=== PATIENT | male | born 1950 | race Asian ===

== ENCOUNTER 2017-03-11 01:45 | Inpatient (IN) | payer MEDICARE ==
[~2017-03-11] VITALS: Ht 154.9 cm; Wt 60.8 kg
--- NOTE | ~2017-03-11 | HP ---
PATIENT'S NAME: ERICA MARTIN [facility] AGE: 66 Y [address] ROOM: [id number] [place], [place] [address] LOCATION: [facility] ADMIT DATE: 03/11/2017 History & Physical DISCHARGE DATE: FAMILY PHYSICIAN: PHYSICIAN, UNKNOWN ATTENDING PHYSICIAN: MICHELE POSADA DATE OF SERVICE: CHIEF COMPLAINT: Slurred speech and left-sided facial droop and chest pain. HISTORY OF PRESENT ILLNESS: This is a 66-year-old, Spanish speaking male, who is currently having slurred speech and cannot give a reliable history also due to confusion. The story is obtained directly from the patient's son and also by his friend who was with him today during the events. I personally made a phone call to the son and to the friend over the phone, and I also spoke to the son in person as well. The story is that the patient was fishing outside today, and around 10:00 p.m., the friend noticed that the patient became confused and unable to speak, and upon further inspection, the patient was having left-sided facial droop and also left hand weakness. After that, the patient had a syncope about few seconds and regained consciousness afterwards. The patient was still unable to speak and unable to move his left arm and also still had left- sided facial droop. The patient was brought to [place] [facility] for evaluation. Over there, the patient was found to have a troponin elevation of 0.9, and the patient was also complaining of a chest pain at that time, about 8/10 intensity. EKG showed left ventricular hypertrophy over there. CT of the brain was negative for hemorrhage or any acute intracranial abnormality. Over there, they contacted our on-call vp integrity, Dr. Baldwin and the plan will be to proceed with a heparin drip for the NSTEMI. The patient was later transferred here for further care. I have already spoken to the son about the potential risk of having a hemorrhagic conversion for a patient with stroke on heparin drip, and the patient's son and the patient's both agreed to proceed with a heparin drip in the setting of NSTEMI. The patient currently still complains of a chest pain, about 3/10 intensity, but otherwise he does not complain of anything else. At the same time, the patient is a bit confused and is not a reliable historian. REVIEW OF SYSTEMS: As mentioned in the history of present illness. All other systems were reviewed and they were negative except for those mentioned in the history of present illness. PAST MEDICAL HISTORY: The patient denies any past medical history, but he states he does take some PATIENT'S NAME: ERICA MARTIN [facility] AGE: 66 Y [address] ROOM: [id number] [place] [address] LOCATION: [facility] ADMIT DATE: 03/11/2017 History & Physical DISCHARGE DATE: FAMILY PHYSICIAN: PHYSICIAN, UNKNOWN ATTENDING PHYSICIAN: MICHELE POSADA medication but he cannot remember. His pharmacy is [facility] here in [place]. ALLERGIES: HE DENIES ANY ALLERGIES. HOME MEDICATIONS: Have to be reconciled with the pharmacy at [facility] to get a list. SOCIAL HISTORY: The patient is an active cigarette smoker, but he cannot tell me how much or how long. He denies any alcohol or any illegal drug use. PAST SURGICAL HISTORY: The patient cannot answer this question due to confusion, and I already tried to ask the son and also the patient's and they also do not know. FAMILY HISTORY: The patient cannot answer due to his confusion, and I also asked the patient's son and the patient's , they also do not know much about his parents. PHYSICAL EXAMINATION: VITAL SIGNS: Temperature 98, blood pressure was 188/95, respiration was 14, saturation was 97% on room air, and heart rate was 86. GENERAL APPEARANCE: Alert, but disoriented x3. Currently, he is not in acute distress. HEENT: Pupils equally round and reactive to light, but kind of sluggish to light bilaterally. Anicteric sclerae. Extraocular muscle movements intact. Nasal turbinates are normal bilaterally. Moist oral mucosa. NECK: No JVD. CARDIOVASCULAR: Regular rate and rhythm. No murmurs, no rubs, no gallops. Normal S1 and S2. RESPIRATORY: Clear to auscultation. No rales, no rhonchi, no wheezing, no crackles. ABDOMEN: Soft, nontender, nondistended, bowel sounds present, and no mass. EXTREMITIES: No edema in the upper or lower extremities. NEUROLOGIC: The patient has a left-sided facial droop and also positive left pronator drift. Muscle weakness about 3/5 in the left upper extremity. Also, tongue deviation upon protrusion. Sensation cannot be assessed given that the patient does not answer my question. Reflex +2 bilaterally in both knees and also +2 bilaterally in both biceps. Sxypxr-xc-ewnc cannot be performed given that the patient does not follow commands. Vevr-ga-dvyw also cannot be performed given that the patient does not follow commands at the moment. Babinski positive bilaterally. Gait is not assessed due to fall risk. Cranial nerves 2 through 12 are remarkable for a tongue deviation upon protrusion and also left-sided facial droop. Vision is intact. Visual noyola PATIENT'S NAME: ERICA MARTIN [facility] AGE: 66 Y [address] ROOM: [place] [address] LOCATION: [facility] ADMIT DATE: 03/11/2017 History & Physical DISCHARGE DATE: FAMILY PHYSICIAN: PHYSICIAN, UNKNOWN ATTENDING PHYSICIAN: MICHELE POSADA are also intact. SKIN: No ulcer, no rash, no cyanosis. LABORATORY DATA: Troponin 0.875, CPK 100, CK-MB 3.1. White blood cells 11.7, hemoglobin 13, hematocrit 40.7, MCV 85.5, platelets 216. Glucose 112, BUN 9, creatinine 0.8, sodium 145, potassium 3.8, chloride 114, CO2 of 23, calcium 8.0, total protein 6.8, albumin 3.2, AST 25, ALT 27, alkaline phosphatase 94, total bilirubin 0.4. Anion gap 11.8. A1c pending. INR pending, PTT pending. GFR more than 90. IMAGING STUDIES: Chest x-ray here in our facility, the official report is pending. Based on my review of the chest x-ray, unremarkable. EKG from the outside facility today showed left ventricular hypertrophy, heart rate is within normal limits. OUTSIDE FACILITY COURSE: In [place], the patient got aspirin full dose one time and also got morphine a total of 4 mg IV and also got IV heparin bolus followed by drip per ACS protocol and also was put on IV nitroglycerin drip. Also got labetalol a total of 50 mg IV. Also got Lopressor 5 mg IV x1. ASSESSMENT AND PLAN: 1. Regarding his left-sided facial droop and slurred speech and left upper extremity weakness: Concerning for ischemic stroke. I already spoke to the on-call neurologist, Dr. Clay, who agreed with my plan of care, which will be to continue the heparin drip right now due to his non-ST- segment elevation myocardial infarction. Continue aspirin 81 mg daily and Lipitor 80 mg daily, and check lipid panel and PT, OT, and speech and swallow evaluation in the morning, n.p.o. for now. We will get MRI of the brain and MRA of the brain and neck. Echo in the morning. Neurology will see the patient in the morning. Use iv nitroglycerin drip for chest pain and blood pressure control, keep SBP in the 160's range. We will also give him IV morphine p.r.n. as well as IV fluids at 100 mL/h normal saline to try to keep blood pressure at 160's range and modify as needed. TPA is not a consideration given that the patient is already out of the tPA window. Further plan will depend on clinical course. 2. Regarding his acute coronary syndrome with hgi-YL-ogmmihi elevation PATIENT'S NAME: ERICA MARTIN [facility] AGE: 66 Y [address] ROOM: [place] [address] LOCATION: [facility] ADMIT DATE: 03/11/2017 History & Physical DISCHARGE DATE: FAMILY PHYSICIAN: PHYSICIAN, UNKNOWN ATTENDING PHYSICIAN: MICHELE POSADA myocardial infarction: Echo in the morning and Cardiology followup in the morning for evaluation. Dr. Baldwin was already notified by the outside facility upon transfer. We will continue all the plan of care as mentioned before in #1. EKG right now. EKG in the morning again. Cycle enzymes every 6 hours. Further plan will depend on clinical course. I will also be checking A1c and also a lipid panel in the morning. Keep the potassium more than 4 and magnesium more than 2. 3. Regarding his deep vein thrombosis prophylaxis: He is on IV heparin drip for the ACS protocol. 4. He is a full code. The son's name is Bharat; his phone number is . His speaks Nauruan, and he can be the urology physician. The patient's friend who was with the patient today during the events, his name is Leo; phone number is . He also speaks Nauruan, and he also can be the urology physician. Both are reliable historians. His home medications have to be reconciled with the pharmacy to get a complete medication list. Total time spent in care on the day of admission 60 minutes where 40 minutes was spent on counseling by going over the plan of care in detail several times with the patient's son and the patient, which also includes the potential risk of having a hemorrhagic conversion of the brain in the setting of a possible stroke while on heparin drip per ACS protocol. The patient's son understands, and the patient's also understands, and they both agreed to proceed with the IV heparin drip. I also went over the plan of care in detail with the patient's son and the patient in detail and also answered all of their questions to their satisfaction. The remainder of the time was spent on chart review and also on interview and also on physical examination and also by coordinating care with the on-call neurologist, Dr. Clay about the plan of care. Further plan will depend on clinical course. MICHELE POSADA MD CC/modl /[id number] D: T: HISTORY & PHYSICAL
--- NOTE | ~2017-03-11 | ECHO ---
Transthoracic Echocardiography Report (TTE) Demographics Patient Name ERICA MARTIN Date of Study 03/11/2017 Patient Number [id number] Visit Number [id number] Date of 1950 Room Number [id number] Accession Number [id number] Gender Male Age 66 year(s) Referring Gail Contreras MD Director Of Aviation Renetta Anton [facility], Physician RVT Physician Interpreting Lotus Jean Title Clerk Automobile Physician Supervising Ordering Physician /MLP Nurse Stress Tombstone Polisher Conclusions Summary The estimated left ventricular ejection fraction is 45-50%. Severe concentric left ventricular hypertrophy. Diastolic assessment reveals Grade I diastolic dysfunction. The left atrium is mildly dilated by LA volume index measurement. The aortic valve is mildly sclerotic. There is mild to moderate aortic regurgitation by color Doppler. Procedure Type of Study TTE procedure:2D Echocardiogram. Procedure Date Date: 03/11/2017 Start: 06:46 AM Study Location: Inpatient Portable Technical Quality: Adequate visualization Indications:CVA. Appropriate Use Criteria: 9 Patient Status: Routine Rhythm: Within normal limits HR: 72 bpm BP: 126/57 mmHg M-Mode/2D Measurements LV Diastolic Dimension: 4.72 cm LV Systolic Dimension: 3.68 cm LV Septum Diastolic: 2.39 cm LV PW Diastolic: 1.94 cm AO Root Dimension: 1.9 cm Cardiac Output: 6.8 l/min AV Cusp Separation: 1.9 cm RV Diastolic Dimension: 1.21 cm LA volume: 84 ml IVC Inspiration: 1.05 cm LVOT: 2.1 cm RV Base: 4.8 cm LVOT VTI: 27.3 cm RV Mid: 2.68 cm LV Stroke volume: 94.51 ml TAPSE: 1.92 cm TDI-S': 10.7 cm/s Doppler Measurements AV Peak Velocity: 1.69 m/s MV Peak E-Wave: 0.88 m/s AV Peak Gradient: 11.42 mmHg MV Peak A-Wave: 0.91 m/s AV Mean Gradient: 6 mmHg MV E/A Ratio: 0.96 LVOT Peak Velocity: 1.08 m/s AV P1/2t: 481 msec MV Deceleration Time: 179 msec TR Velocity:2.62 m/s PV Peak Velocity: 0.99 m/s TR Gradient:27.46 mmHg PV Peak Gradient: 3.94 mmHg Estimated RAP:3 mmHg Estimated PASP: 30.46 mmHg Estimated RVSP: 30 mmHg A' Septal Velocity: 0.05 m/s E' Septal Velocity: 0.03 m/s A' Lateral Velocity: 0.07 m/s E' Lateral Velocity: 0.06 m/s MV E/E' Ratio: 26 Findings Left Ventricle The estimated left ventricular ejection fraction is 40%. Severe concentric left ventricular hypertrophy. Diastolic assessment reveals Grade I diastolic dysfunction. Right Ventricle Normal right ventricle structure and function. Left Atrium The left atrium is mildly dilated by LA volume index measurement. Right Atrium The right atrium is mildly dilated. IVC imaging is consistent with normal RA pressures. Mitral Valve Mild mitral regurgitation by color Doppler. Aortic Valve The aortic valve is mildly sclerotic. There is mild to moderate aortic regurgitation by color Doppler. Tricuspid Valve Mild tricuspid regurgitation by color Doppler. Pulmonic Valve No pulmonic valve regurgitation by color Doppler. Pericardial Effusion Small pericardial effusion, anterior to RV. Miscellaneous Visualized portions of the aortic root and ascending aorta appear normal in size. Pleural Effusion Pleural effusion present. Signature dtt: XIOMARA RAMIREZ dtd: 03/11/17 0646 Physician Self Edit
--- NOTE | ~2017-03-11 | CON ---
PATIENT'S NAME: ERICA MARTIN [facility] AGE: 66 Y [address] ROOM: [id number] [place], [place] [address] LOCATION: GICU ADMIT DATE: 03/11/2017 Consultation DISCHARGE DATE: FAMILY PHYSICIAN: JULIETTE WHITNEY ATTENDING PHYSICIAN: MICHELE POSADA DATE OF CONSULTATION: 03/11/2017 REFERRING PHYSICIAN: Gavino Baldwin MD TIME OF SERVICE: 12:42 p.m. CHIEF COMPLAINT: Left-sided facial droop. HISTORY OF PRESENT ILLNESS: This is a 66-year-old, Guinean speaking male, who came in last night with slurred speech. He is a poor historian; however, his son is at the bedside and can help with the story. He was fishing yesterday and around 10 o'clock, the friend of the patient noted that he was confused and had difficulty speaking. He also had left-sided facial droop and left hand weakness. He had a couple seconds of syncope and regain consciousness soon afterwards. He was able to speak and move his left arm after the syncope, but still had a left-sided facial droop. He was taken to [place] [facility] for evaluation. In [place], he was noted to have a troponin elevation of 0.9 and the patient did complain of chest pain at that time, was about an 8/10 intensity. EKG at that time showed left ventricular hypertrophy. They did a CT of the brain which was negative for hemorrhage or any acute intracranial abnormality. They did contact our on-call tobacco cutter, Dr. Baldwin, and transfer the patient to [facility] after starting a heparin drip for a non-STEMI. At the time of our evaluation, the patient is denying any chest pain. He has just completed another CT and his MRI. It is difficult to assess but his son is at the bedside and helps with communication. The patient is also able to write and that seems to be a very good way for him to communicate. We are consulted for stroke management. REVIEW OF SYSTEMS: All of systems were reviewed and were negative except for those mentioned in the history of present illness. PAST MEDICAL HISTORY: This is unable to be obtained due to language barriers and the patient's aphasia; however, he takes some medication but he cannot remember what kind. ALLERGIES: PATIENT'S NAME: ERICA MARTIN [facility] AGE: 66 Y [address] ROOM: [id number] [place], [place] [address] LOCATION: [facility] ADMIT DATE: 03/11/2017 Consultation DISCHARGE DATE: FAMILY PHYSICIAN: PHYSICIAN, JULIETTE ATTENDING PHYSICIAN: MICHELE POSADA DENIES ANY ALLERGIES. HOME MEDICATIONS: Once again, we were unable to have this medication list available at this time. SOCIAL HISTORY: The patient is an active cigarette smoker but does not quantify how long nor how much. He does not use alcohol or any illegal drugs. PAST SURGICAL HISTORY: Unknown by the patient and family. FAMILY HISTORY: Unable to be answer due to the patient's state. PHYSICAL EXAM: VITAL SIGNS: Temperature is 98, blood pressure was 198/92, respirations 16, saturations were 97% on room air, heart rate was 86. GENERAL APPEARANCE: Slightly lethargic patient but arousable. Does not appear to be in any acute distress. HEENT: Pupils equal, round, and reactive to light. Extraocular muscles are intact. NECK: No JVD or nuchal rigidity. CARDIOVASCULAR: Regular rate and rhythm. No murmurs, rubs, or gallops. Normal S1, S2. Sinus rhythm on the monitor. RESPIRATORY: Clear to auscultation. No rales, no rhonchi, no wheezing, no crackles. ABDOMEN: Soft, nondistended. Nontender. Bowel sounds present in all four quadrants. The NIH stroke scale is as follows. Level of consciousness 0, month and age 2, open and close eyes 1, best gaze 0, visual noyola 0, facial paresis 1, left arm motor function 1, right arm motor function 0, left leg motor function 2, right leg motor function 0, limb ataxia 0, sensory 0, best language 2, dysarthria 1, extinction and inattention 1, for a total NIH stroke score of 11. Gait was not observed. IMAGING STUDIES: An MRI done today shows an acute ischemic infarct in the right MCA territory which involve the insular cortex and lateral right frontal lobe. Thankfully, there is no hemorrhage. An MRA does show a focal cutoff of the right M3 segment MCA branch within the right sylvian fissure correlating with the acute infarct territory in the right frontal lobe. There is also some bilateral BOOK ILLUSTRATOR atherosclerotic irregularity. CT of the brain was done in a rather urgent fashion to evaluate for bleeding and thankfully again that is negative for hemorrhage. PATIENT'S NAME: ERICA MARTIN [facility] AGE: 66 Y [address] ROOM: [id number] [place], [place] [address] LOCATION: [facility] ADMIT DATE: 03/11/2017 Consultation DISCHARGE DATE: FAMILY PHYSICIAN: PHYSICIAN, NO ATTENDING PHYSICIAN: MICHELE POSADA LABORATORY STUDIES: Of note, the patient's LDL is 132 on his lipid panel. ASSESSMENT AND PLAN: 1. Right middle cerebral artery cerebrovascular accident. This is a challenging stroke to manage with the patient's complaints of chest pain. Dr. Loja and Dr. Zhang did discuss this plan of care at the bedside. It is neurology's viewpoint that unless the patient has active acute coronary system as evidenced by increasing troponins and ST elevation that heparin should not be utilized. This is a large stroke with a great risk for hemorrhagic conversion. Thankfully the patient's troponins are trending down. There is also a risk of troponin leak with stroke. Hopefully, the patient will remain chest pain free. In addition, Dr. Loja and Dr. Zhang did discuss blood pressure control. Normally, we would let blood pressures go to 220; however, in light of the chest pain, a compromise of 140-160 is not out of the realm of possibility. We will certainly follow with you closely to monitor this patient's tolerance and cardiac involvement. 2. It is safe to place the patient on ASA. We can give rectally at this time. We certainly instigates statins as soon as possible. However, right now, the patient's swallow has not been validated by Speech Therapy. Thank you for this very interesting consultation. Dr. Zhang and Dr. Loja discussed the patient's plan of care at the bedside. Dr. Loja and I examined the patient and developed the plan of care. Forty minutes was spent, examining the patient, and discussing the plan of care for this patient including involving the hospitalist team. The family was also at the bedside and we discussed the plan of care with them also. I would like to thank you for this consult. LEIGHA POLOON, MD PP/jeanie /[id number] d: 03/12/17 1714 t: 03/13/17 1623, CONSULTATION REPORT
--- NOTE | ~2017-03-11 | CON ---
PATIENT'S NAME: ERICA MARTIN [facility] AGE: 66 Y [address] ROOM: [place] [address] LOCATION: [facility] ADMIT DATE: 03/11/2017 Consultation DISCHARGE DATE: FAMILY PHYSICIAN: PHYSICIAN, NO ATTENDING PHYSICIAN: MICHELE POSADA REFERRING PHYSICIAN: Gavino Baldwin MD Consult for Dr. Posada. This gentleman, who is from [place] speaks no Kuwaiti, but follows instructions well. Apparently, he understands Kuwaiti. He is referred for rehab evaluation. He was admitted on 03/11 with slurred speech, confusion, and weakness of the left upper and lower extremity. Details on record of history and physical. He was evaluated at the local hospital. CT scan on 03/11 showed acute right middle cerebral artery territory ischemic infarction and later confirmed by MRI involving cortex lateral right frontal lobe. He was seen upon his initial evaluation in [place] to have increased troponin and with chest pain and hypertension. He was evaluated and was transferred to our hospital for definitive management. Now, he is alert, fairly well, able to follow instructions. Apparently, he understands some Kuwaiti and with some modeling, he could do and follow instructions well. He is not in acute distress now; however, he is tilting towards the left and has his left eye closed. He has left facial droop and has left neglect. He cannot move his left upper and lower extremity. There is some volitional return in the left lower extremity. Vitals are as follows: Blood pressure 167/80, temperature 97.1, pulse 62, respiratory rate 16. He is 5 feet 1 inch tall and weighs 62.4 kg. As I mentioned, he is neglecting the left side, and he did demonstrate that he could move his tongue, and soft palate is moving symmetrically, but slowly. His tongue however is moving slowly, a little bit on the left side in comparison to the right. Speech has evaluated him and has suggested pureed diet with honey thickened liquids. He cannot move his left upper extremity, very little if any movement in the left lower extremity at the present time. Deep tendon reflexes are present and equal throughout. PATIENT'S NAME: ERICA MARTIN [facility] AGE: 66 Y [address] ROOM: [place] [address] LOCATION: [facility] ADMIT DATE: 03/11/2017 Consultation DISCHARGE DATE: FAMILY PHYSICIAN: PHYSICIAN, NO ATTENDING PHYSICIAN: MICHELE POSADA He is continent of his bowel and bladder. He is saturating at room air. At the present time, has left facial droop also. He is at the present time on the following medications: 1. Aspirin. 2. Metoprolol. 3. Lipitor. 4. Nicotine patch. 5. Protonix. 6. Tylenol. 7. NaCl 0.9%. 8. Zofran. 9. Morphine sulfate. 10. Nitroglycerin. 11. Heparin with sodium. He has been initiated on PT, OT, and Speech. I will brace as necessary. Please see the orders. I will also do E-stim for specific muscle groups on the left upper and lower extremity. Please see the orders. I will continue him on PT and OT, Speech already initiated. I plan to take him to rehab unit for intensive rehabilitation of 3-4 weeks aiming to discharge him on modified independence. Thank you for this referral. ALYX WASHINGTON MD WMS/modl /[id number] d: 03/12/[id number] t: 03/13/17 07, CONSULTATION REPORT
--- NOTE | ~2017-03-11 | DS ---
PATIENT'S NAME: ERICA MARTIN [facility] AGE: 66 Y [address] 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 SECONDARY DIAGNOSES: 1. Hypertensive urgency. 2. Elevated troponin, non-ST segment elevation myocardial infarction. 3. Heart failure with reduced ejection fraction. 4. Hypokalemia. 5. Dysphasia. PROCEDURE PERFORMED: None. CONSULTATIONS: Neurology. PRESENTING COMPLAINTS: This is a 66-year-old Bengali male who [facility] [place], [place] after noting to have developed confusion, dysarthria, and left-sided facial droop along with left hand weakness around 10 p.m. on date of admission. The patient subsequently suffered a syncopal episode and regained consciousness although his speech and weakness did not improve prompting his friends to bring him to the emergency room. At the outside hospital, the patient was found to have a troponin elevation to 0.9 and was complaining of substernal chest pain at that time, 8/10 intensity. EKG did not show significant ST changes, but did note LVH. CT performed was negative for hemorrhage or any acute abnormality. Due to the chest pain and troponin elevation, Cardiology was called here at [facility], and Dr. Baldwin informed the plan to proceed with heparin drip for NSTEMI, and transfer patient. At the outside hospital, the patient did receive aspirin full dose, IV morphine as well as IV heparin bolus and drip per ACS protocol and was placed on an IV nitroglycerin drip. He was subsequently transferred to our facility. HOSPITAL COURSE: Upon presentation, the patient was noted to have persistent left-sided facial droop and slurred speech with confusion and left upper extremity weakness, heightening concern for ischemic stroke. Dr. Clay, pest control chemical technician neurology, was consulted immediately upon admission and it was determined that continuation of heparin drip was felt necessary due to his NSTEMI. The PATIENT'S NAME: ERICA MARTIN [facility] AGE: 66 Y [address] ROOM: [id number] [place], [place] [address] LOCATION: [facility] ADMIT DATE: 03/11/2017 Discharge Summary DISCHARGE DATE: 03/17/2017 FAMILY PHYSICIAN: JULIETTE WHITNEY ATTENDING PHYSICIAN: Avery Reynolds patient was continued on aspirin, plavix, Lipitor 80 mg daily, PT-OT, speech and swallow evaluations were ordered as well as MRI of brain and MRA of brain and neck. MRI showed acute ischemic infarct of the right MCA territory involving insular cortex and lateral right frontal lobe without hemorrhage. MRA of the neck was negative. Echocardiogram was additionally performed showing an ejection fraction of 45% to 50% with severe LVH, as well as grade 1 diastolic dysfunction. The left atrium was mildly dilated. Aortic valve is mildly sclerotic with mild aortic regurgitation. Following initial evaluation, the patient's hospital course was subsequently stable with ongoing efforts at rehabilitation. He was upgraded to a pureed diet. However, on March 16, the patient was noted to have worsening aphasia and somnolence. Repeat head CT performed to rule out hemorrhagic conversion in the setting of recent heparin use. No hemorrhagic conversion was noted. Also, of note, heparin had been discontinued 2 days prior to this, it was felt that troponin may have been elevated secondary to stroke, as patient did not endorse further chest pain. The stay was further more complicated by accelerated hypertension, requiring intermittent nitroglycerin drips. Upon discharge, oral blood pressure medication regimen included lisinopril 40 mg daily, chlorthalidone 50 mg daily, aldactone 50 mg daily, coreg 6.25 mg BID, norvasc 10 mg daily, which can be further titrated at rehab facility. The patient was not requiring nitroglycerin drip for greater than 24 hours prior to transfer. CONDITION: Fair. EXAM ON DAY OF DISCHARGE: VITAL SIGNS: Reviewed. Temperature 97.9, pulse 67, blood pressure 182/78, saturating 95% on room air. GENERAL: Somnolent but awakens to voice, and responds appropriately to questioning. CARDIOVASCULAR: Regular rate and rhythm without murmur. No carotid bruit. 2+ bilateral pulses. RESPIRATORY: Respirations are even and unlabored, clear to auscultation bilaterally on room air. ABDOMEN: Soft, nontender, nondistended. Normoactive bowel sounds. NEUROLOGIC: Converses but significant aphasia persists, strength is 4/5 right upper and left lower extremities, left 1/5 at the upper extremity and lower extremity 3/5 at hip with movements. Persistent left facial droop also noted. DISPOSITION: [facility]. DISCHARGE MEDICATIONS: See medication reconciliation. DISCHARGE INSTRUCTIONS AND FOLLOWUP: The patient to comply with pureed diet. Activity as tolerated with assistance. Followup to be determined pending PATIENT'S NAME: ERICA MARTIN [facility] AGE: 66 Y [address] ROOM: [place] [address] LOCATION: [facility] ADMIT DATE: 03/11/2017 Discharge Summary DISCHARGE DATE: 03/17/2017 FAMILY PHYSICIAN: PHYSICIAN, NO ATTENDING PHYSICIAN: Avery Reynolds course at [facility]. Time spent on discharge of 35 minutes coordinating further care and discharge. MD GUILLERMO LOPEZ/jeanie /[id number] d: 03/18/17 0116 t: 03/18/17 0736, DISCHARGE SUMMARY
[2017-03-11 03:02] LABS: BASOPHIL % 0.3 %; EOSINOPHIL # 0.2 K/uL (0.0-0.5); EOSINOPHIL % 2.1 %; HEMATOCRIT 40.7 % (37.0-53.0); IMMATURE GRANULOCYTE % 0.3 %; LYMPHOCYTE # 1.7 K/uL (0.8-4.0); LYMPHOCYTE % 14.8 %; MCH 27.3 pg (27.0-34.0); MCHC 31.9 gm/dL (32.0-36.5); MCV 85.5 fl (83.0-98.0); MONOCYTE # 0.5 K/uL (0.0-1.0); MONOCYTE % 3.9 %; MPV 10.5 fl (9.4-12.4); NEUTROPHIL # (ANC) 9.2 K/uL (1.4-9.0); NEUTROPHIL % 78.6 %; NRBC % 0 /100WBC (0-0.00); PLATELET COUNT 216 K/uL (150-450); RBC 4.76 M/uL (3.50-5.50); RDW-CV 14.6 % (11.9-14.6); WBC 11.7 K/uL (4.0-11.0)
[2017-03-11 03:21] LABS: ALBUMIN 3.2 gm/dL (3.5-5.0); ALK PHOS 94 IU/L (33-138); ALT 27 IU/L (12-78); ANION GAP 11.8 (10.0-19.0); AST 25 IU/L (10-40); BLOOD UREA NITROGEN 9 mg/dL (6-24); CHLORIDE 114 mMol/L (96-110); CO2 23 mMol/L (22-32); CPK 100 IU/L (35-332); CREATININE 0.8 mg/dL (0.6-1.3); POTASSIUM 3.8 mMol/L (3.7-5.1); SODIUM 145 mMol/L (135-145); TOTAL BILIRUBIN 0.4 mg/dL (0.0-1.5); TOTAL PROTEIN 6.8 g/dL (6.0-8.4)
[2017-03-11 03:23] LABS: INR - (THERAPEUTIC) 1.05 (0.92-1.07)
[2017-03-11 03:24] LABS: PTT 105 SECONDS (25-32)
--- NOTE | 2017-03-11 06:58 | NUR ---
THE PATIENT WAS OUT FISHING WITH A FRIEND WHEN THE FRIEND NOTICED THAT HE WAS EXPERIENCING SLURRED SPEECH AND HAD A LEFT FACIAL DROOP. THE PATIENT EXPERIENCE AN EPISODE OF SYNCOPE. HE WAS TAKEN TO THE [facility] CT WAS NEGATIVE FOR HEAD BLEED. THE PATIENT WAS THEN TRANSFERRED HERE PER AMBULANCE. THEY ARRIVED TO THE UNIT AT 0215 PER CART WITH SON AT BEDSIDE. THE PATIENT WAS ALERT AND FOLLOWED COMMANDS WITH CUEING. 2L OF O2 PER N.C. VITAL SIGNS- HR-86, 99%, 177/97, MAP-130, T-98.0, 0/10, R-18. SIGNIFICANT MEDICAL HISTORY IS UNAVAILABLE D/T THE PATIENTS MENTAL STATUS. THE PATIENTS FAMILY WILL BE HERE TODAY TO ANSWER QUESTION.
--- NOTE | 2017-03-11 07:23 | NUR ---
Significant Event: PATIENT IS ALERT AND ORIENTED TO PERSON-FOLLOWS COMMANDS WITH CONTINUOUS CUEING. VSS. AFEBRILE. L) FACIAL DROOP. LEFT SIDED WEAKNESS. SR. 2+ PULSES. O2-2L/NC. NPO-UNTIL SEEN BY SPEECH. ACCU CHECKS Q6H. BEDREST. PIV IN R) WRIST AND AC-INFUSING NITRO, HEPARIN, POTASSIUM, AND NS. Follow up: EX- AND SON WILL TRY TO ANSWER QUESTIONS TO THE BEST OF THEIR ABILITIES ABOUT THE PATIENTS PAST MEDICAL HISTORY. THEIR NUMBERS ARE ON THE BOARD.
[2017-03-11] MEDS ORDERED: TYLENOL EXTRA500 MG PO (08:57)
--- NOTE | 2017-03-11 14:23 | NUR ---
A - PT SCREENED D/T MST AND CONSULT RECEIVED PER STROKE PROTOCOL ALBANIAN SPEAKING. ATTEMPTED TO VISIT PT BUT DOWN FOR MRI, NO FAMILY MEMBER SEEN IN ROOM. SLURRED SPEECH PER SHIFT REPORT. DEFERRED NFPE AT THIS TIME. HT: 154.94 CM, WT: 136#, BMI: 25.7, IBW: 48 KG, %IBW: 130% LABS: GLU 119, ALB 3.2, A1C 5.5% MEDS REVIEWED. DIET: NPO UNTIL ST SEES PER SHIFT REPORT. EST NEEDS: [id number] KCAL (25-30 KCAL/KG IBW), 48-58 GRAMS PROTEIN (1-1.2 GRAMS/KG IBW), FLUID NEEDS: 1ML/KCAL D - NOT APPROPRIATE FOR NUTRITION INTERVENTION AT THIS TIME. M/E - GOAL: START ORAL DIET/ENTERAL NUTRITION ABLE IN 2-4 DAYS. PLAN: 1) WILL FOLLOW W/ DIET ADVANCEMENT, ST EVAL AND POC.
--- NOTE | 2017-03-11 15:07 | NUR ---
ST swallow and cognitive/linguist eval. attempted to complete at 1014 and nsg. with pt. to complete bed bath. 1036 ST visited with pt's son in room and friends of pt. entered room. ST unable to arouse pt. to safely assess swallow or cognitive/linguistic skills during this session. 1335 pt. out of room for MRI. ST plan to assess pt. on 03/12/17. If patient unable to arouse to assess for swallow safety, ST recommend enternal feeding.
--- NOTE | 2017-03-11 18:51 | NUR ---
Significant Event: Unable to assess orientation status. Speaks mainly andorran, but understands some occitan. MARTII was not helpful due to patient's severe expressive and receptive aphasia. Speech garbled. L) sided weakness, neglect noted. L) droop. NIHSS= 11. Hypertensive, all other VSS on 1L O2. Nitro gtt to keep SBP around 160. Voids per bedside commode. IV to R) wrist infusing NS at 100 mL/hr and nitro gtt. IV to R) AC, saline locked. Follow up: Up with 2PA to [facility]. NPO. Accucheks q 6 hours.
--- NOTE | 2017-03-12 07:13 | NUR ---
Significant Event: Patient has been drowsy. Last assessments was able to answer some questions. Confused at times. L) facial droop-severe aphasia. Needs cueing. SR-2+ pulses-no edema. Room air. NPO. Bowels are active-passing flatus. ACCU checks q6h. Bedrest-2A with BSC prvg. R) wrist PIV infusing NS @ 100 and Nitro. Follow up: Continue to monitor.
--- NOTE | 2017-03-12 11:48 | NUR ---
ATTEMPTED TO VISIT PT THIS MORNING BUT NO FAMILY MEMBER PRESENT. CONFUSED AT TIMES PER SHIFT REPORT. ST EVALUATED THIS MORNING, RECOMMEND PUREE WITH HONEY THICK LIQUID DIET. WILL TRIAL HONEY THICK CIB ONCE DAILY AND MAGIC CUP BID. WILL FOLLOW WITH DIET TOLERANCE, PO INTAKE AND DIET EDUCATION (IF APPROPRIATE) IN 4-5 DAYS.
--- NOTE | 2017-03-12 15:38 | NUR ---
1526 Stopped by Swapna' room to visit with him but JUDD James tells me that he is out of his room and down for a CT for a post fall CT. Will attempt to see him tomorrow. CM to continue to follow and assist.
--- NOTE | 2017-03-12 15:56 | NUR ---
Significant Event: Patient alert to self, and at times is oriented to [place]. Follows commands. Left arm withdraws, left lower leg does have movement to toes with stimuli :stroking of the foot. Unable to assess for numbness/tingling. Left facial droop. Pupils 3mm, brisk. Aphasia, garbled speech. Lungs clear and dim on room air. Will write when he has to go to the bathroom, up with 2 assist and gaitbelt. Currently is still bedrest with bathroom priveleges, awating Dr jd round. Patient did have fall today, alarm was going off. Primary nurse in room next door.ANother nurse found patient on the floor as the alarm was going off. VItals taken, patient assessed. Did c/o headache and rt leg pain, but said he has that prior to fall. Patient went for CT of head and xray of pelvis to rule out any injuries. Son was notified as well as Dr Zhang. Patient continues on Nitro drip, currently at 25mcg/min. Bp ranges 150-170. We are to keep equal to 160. Also on scheduled Lopressor. Pureed diet with honey thick liquids, needs assist to eat. Crush meds. Iv in right wrist infusing and Rt a/c saline locked. Accuchecks q 6hrs per stroke orders. ALarms on for safety. Hi/lo bed. Follow up: Nitro drip. Neuro status. Alarms. 15 min checks. Accuchecks.Follow up CT and xrays.
--- NOTE | 2017-03-13 05:43 | NUR ---
Significant Event: Oriented to person and place. Follows some commands. Weakness to left side. Nitro gtt titrating up throughout night and currently at 85mcg/min (order that Nitro may go up to 150mcg/min). 160-190s SBP and other VSS. Bed alarm on at all times and patient is impulsive at times. Q6h accuchecks. Pureed diet with honey thickened liquids and meds need to be crushed. Denies pain. Family at bedside part of the evening. Follow up:
--- NOTE | 2017-03-13 12:56 | NUR ---
Update from nursing and therapies that had rounded on Roshan and reported that he would be a good GIRP canidate. I phoned over and talked with Venessa. She also says that he would be a good canidate. They could take as soon as Thursday but Roshan is still on a drip, so it was decided that they would accept him on Friday 03/16 at 0900. Packet started, orders printed, no ID screen needed. updated and is in agreement with plan. He says that cardiology still has to do a workup on him and if that isn't done today, then the will have to do it on Thursday which could potentially delay dismissal until Thursday. Let him know that we would see what happened today and then adjust plans accordingly. No other questions, needs or concerns. CM to continue to follow and assist. Plan GIRP on Friday 03/16 at 0900. Talked with Roshan about this plan and he tells me that he is ok with going to GIR, no family was in the room when I was there so if I see them I will also update them as well.
--- NOTE | 2017-03-13 13:26 | NUR ---
Significant Event: Patient alert to self, left facil droop. Pupils 3mm, brisk. Drowsy. Follows commands. Left side affect, left arm withdraws and left leg slight movement of toes. Unable to aquire sensation. Lungs clear and dim, on room air. Had chest xray this am, unremarkable. Bowels active. Denies pain. Up with 2 assist and gaitbelt, leans left. Pureed diet with honey thick liquids, crush meds. Continues on Nitro drip for BP, did have as high at 105mcg/min, now at 90mcg/min. Patient started on lisinopril today as well as had a dose of lasix this am. Iv in rt wrist infusing and saline locked in rt a/c. Alarms on for safety, hi/lo bed. Patient did fall yesterday. Currently on 15 min checks. Plan for GIRP when off Nitro drip. Accuchecks were dc'd today. Follow up: Neuro/assessments q 4hrs, Freq vitals with Nitro. Alarms.
--- NOTE | 2017-03-14 05:04 | NUR ---
Significant Event: PATIENT HAS BEEN ALERT WHEN WAKEN-DROWSY MOST OF THE TIME-ORIENTED TO PERSON/PLACE. FOLLOWS COMMANDS WITH CUEING. PERRLA. AFEBRILE. MOVES SPONTANEOUSLY. NIHSS-22. L) FACIAL DROOP. RUNNY NOSE. ROOM AIR. L) HAND EDEMA. CONT/INCONT OF URINE. BOWELS ARE ACTIVE-LAST BM IS UNKNOWN. TEDS. R) AC PIC SL-'D, R) WRIST INFUSING NS AT 100 & NIRTO. PUREE DIET WITH NECTAR THICKENED LIQUIDS. 1:1 FEEDER. HI/LO BED-FELL ON 03/13. UP 2A. Follow up: REHAB ON THURSDAY IF OFF OF GTTS.
[2017-03-14 05:20] LABS: ALK PHOS 87 IU/L (33-138); ALT 30 IU/L (12-78); AST 28 IU/L (10-40); BLOOD UREA NITROGEN 7 mg/dL (6-24); CALCIUM 8.4 mg/dL (8.5-10.5); CHLORIDE 108 mMol/L (96-110); CO2 25 mMol/L (22-32); CREATININE 0.7 mg/dL (0.6-1.3); SODIUM 141 mMol/L (135-145); TOTAL PROTEIN 6.6 g/dL (6.0-8.4)
[2017-03-14 05:36] LABS: TOTAL BILIRUBIN 0.7 mg/dL (0.0-1.5)
--- NOTE | 2017-03-14 15:20 | NUR ---
Significant Event: Patient alert to self and place. Speaks luxembourgish, speaks a little Scottish. Pupils 4mm, brisk. Follows commands. No movement seen to L) side. Moves spontaneously on R) side. Speech garbled, aphasic. L) droop noted. NIHSS= 18. Hypertensive, all other VSS on room air. Nitro gtt, titrate to keep SBP around 160. Does not keep SCD's on. Incontinent of bladder, does use urinal at times. Unsure of last bowel movement. No skin issues. IV to R) wrist infusing NS at 100 mL/hr and nitro gtt. IV to R) AC, saline locked. Follow up: Pureed diet with nectar liquids. Pills crushed in applesauce. Had fall on 03/12. GIRP Thursday if off of gtt.
--- NOTE | 2017-03-15 05:00 | NUR ---
Significant Event: Patient alert to person, place, date. Speaks Pry[place]inig, but is able to get some spanish out and is able to understand some. Understands commands. Has some slurred speech, aphasia, and garbled speech. Has L) sided face droop. L) sided numbness to leg, arms, cheek. NIHSS 13. On Nitro gtt, hypertensive. VSS. Used urinal throughout the night. No incontinence. No BM. Dressing changed to R) wrist, some bleeding but IV not leaking. Normal saline running at 100 ml/hr with Nitro gtt. R) AC SL IV. Puree diet with nectar thick liquids. Meds crushed in applesauce. Transfers 2A to strong side. Follow up:
[2017-03-15 05:01] LABS: ALBUMIN 3.1 gm/dL (3.5-5.0); ALK PHOS 90 IU/L (33-138); ALT 32 IU/L (12-78); ANION GAP 11.1 (10.0-19.0); AST 28 IU/L (10-40); BLOOD UREA NITROGEN 6 mg/dL (6-24); CALCIUM 8.3 mg/dL (8.5-10.5); CHLORIDE 109 mMol/L (96-110); CO2 24 mMol/L (22-32); CREATININE 0.8 mg/dL (0.6-1.3); POTASSIUM 3.1 mMol/L (3.7-5.1); SODIUM 141 mMol/L (135-145); TOTAL BILIRUBIN 0.6 mg/dL (0.0-1.5); TOTAL PROTEIN 6.8 g/dL (6.0-8.4)
--- NOTE | 2017-03-15 15:50 | NUR ---
Significant Event: Patient alert and oriented x3. Pupils 4mm, brisk. Slight movement noted to L) side at times. Spontaneous movement to R) side. Aphasic. Speech garbled. Speaks Singaporean, but able to speak some Syriac and communicate with writing. Hypertensive, all other VSS on room air. Nitro gtt to keep SBP around 160. Incontinent of bladder at times, uses urinal at times also. IV to R) wrist infusing NS at 100 mL/hr and nitro gtt. Follow up: Pureed diet with nectar liquids. Pills crushed with applesauce. Had fall on 03/12.
--- NOTE | 2017-03-16 03:11 | NUR ---
Significant Event: Patient alert and oriented. NIHSS 10. Speaks Fijian but can understand/communicate some belarusian. Does have some aphasia and garbled speech. Uses writing pad. Hypertensive, VSS otherwise. Has used urinal but been incontinent x2. IV to R) hand running Normal saline at 100ml/hr. Colace given for bowels. Pureed diet with nectar thick liquids. Meds crushed in applesauce. Transfers 2A pivot. Fall on 03/12. Follow up:
[2017-03-16 05:33] LABS: ALBUMIN 3.5 gm/dL (3.5-5.0); ALK PHOS 111 IU/L (33-138); ALT 37 IU/L (12-78); ANION GAP 12.5 (10.0-19.0); AST 35 IU/L (10-40); CALCIUM 9.1 mg/dL (8.5-10.5); CHLORIDE 108 mMol/L (96-110); CO2 22 mMol/L (22-32); CREATININE 0.8 mg/dL (0.6-1.3); POTASSIUM 3.5 mMol/L (3.7-5.1); SODIUM 139 mMol/L (135-145); TOTAL PROTEIN 7.8 g/dL (6.0-8.4)
[2017-03-16 05:38] LABS: BLOOD UREA NITROGEN 10 mg/dL (6-24); TOTAL BILIRUBIN 0.8 mg/dL (0.0-1.5)
--- NOTE | 2017-03-16 09:03 | NUR ---
A - NUTRITION F/U. A/O, SOME APHASIA. K+ 3.4, GLU 77, BUN/LITIGATION PARTNER 10/0.8, ALB 3.5. WT IS 130#; DOWN 6# SINCE ADMIT. ON ALDACTONE. DIET: PUREE, NECTAR THICK LIQUIDS. INTAKE SIPS/BITES TO 50%. D - AT RISK W/ INADEQUATE ORAL INTAKE R/T DIFFICULTY SWALLOWING AND DECREASED APPETITE AEB INTAKE RECORD. I - GOAL: 50% OR > BY DISMISSAL. M/E - WILL ADD MIGHTY SHAKE W/ BF AND DINNER AND MAGIC CUP AT LUNCH. F/U ON INTAKE IN 3-5 DAYS.
--- NOTE | 2017-03-16 16:26 | NUR ---
Shift Summary:Patient alert and oriented times three. Patient communicates with a pen and paper at times. PERRLA. Numbness to left side of body. NIH-SS 18 this shift. Patient stated he was dizzy this morning and preferred to be laying down. At 1030 patient noted to be more drowsy, increase in weakness, increase in aphasia, increase in slurred speech. PT/OT/SP noted changes in patients condition as well. Dr. Figueroa notified of patients condition, stat CT of the brain ordered. Patient returned to prior baseline around 1400. Moves right upper and lower extremities spontaneously and on command. Moves left lower extremity spontaneously and on command. Weaker than RLE. Left upper extremity slight movement. Lungs clear and diminished. Hypertensive this morning with pressures as high as 197, oral antihypertensives given and blood pressure remained below ordered parameter of 175 the remainder of the shift. Bowel sounds active. Patient complained on nausea this morning, given IV zofran at 0900 with relief noted. 1x loose bowel movement noted this shift, colace held this am. Patient voids per the urinal or the bathroom, incontinent at times. No complaints of pain this shift. Patient takes medications crushed in applesauce or pudding. Peripheral IV has NS infusing at 100ml/hr in his right hand. Patient tolerated a [place] thickened liquids, pureed diet this shift. Patient remains on a hi-lo bed, no attempts to get out of bed or out of the chair without assistance this shift. Plan:DC to GIRP tomorrow morning.
--- NOTE | 2017-03-16 17:52 | NUR ---
Read, reviewed and agree with Sheridan Sanchez RN charting.
--- NOTE | 2017-03-17 03:50 | NUR ---
Significant Event: A/Ox3. Forgertful at times. Communicates through speech and through writing down words on armand and paper if we dont understand. Left facial droop. Left arm does not move - left shoulder dose. Left leg moves slightly. Pupils 3.0 and brisk. Stroke scale 13. In SR. SBP in 140s-150s. Heart rate 60s. Afebrile. Lungs clear and diminished on room air. IV to right hand running NS at 100/hr. No compalints of nausea/ vomiting. HIgh-low bed in place due to fall in hospital on . Up 2 assist pivot. Pureed diet with nectar thick liquid. Denies Headache Follow up: GIRP today.
[2017-03-17 05:58] LABS: ALBUMIN 3.2 gm/dL (3.5-5.0); ANION GAP 10.4 (10.0-19.0); CALCIUM 8.4 mg/dL (8.5-10.5); CREATININE 0.9 mg/dL (0.6-1.3); POTASSIUM 3.4 mMol/L (3.7-5.1); TOTAL BILIRUBIN 0.7 mg/dL (0.0-1.5); TOTAL PROTEIN 7.1 g/dL (6.0-8.4)
--- NOTE | 2017-03-17 08:39 | NUR ---
PATIENT IS 66 YEAR OLD WHO WAS FISHING WHEN HE STARTED TO DEVELOP LEFT SIDE WEAKNESS, LEFT FACIAL DROOP, AND FAINTED. WOKE UP DISORIENTED WHERE HE WAS TAKEN TO THE [facility] ER AND TRANSFERED HERE FOR NON-STEMI AND R) MCA STROKE. WAS ON HEPARIN FOR BRIEF TIME AND IS NOW OFF. WAS ALSO ON NITRO. THIS WAS TURNED OFF ON AT 1530. PT IS ORIENTED X3. HAS SLURRED GARBLED SPEECH. LEFT ARM HAS MOVEMENT WITH PAIN. LEFT LEG HAS SLIGHT MOVEMENT. STATED HE COULD NOT FEEL HIS ARM. BUT THEN WAS NOT WANTING TO FINISH LETTING ME ASSESS HIM FOR THE REST OF THE STROKE SCALE. WAS ABLE TO IDENTIFY WELL. LEFT FACIAL NOTED. CLEAR AND DIMINSHED LUNG SOUNDS ON RA. ACTIVE BS. LAST BM 03/16. PT CAN BE CONTIENENT/ INCONTINENT. TAKES MEDS CRUSHED IN APPLE SAUCE. ON PUREED NECTAR THICK DIET. UP 2 ASSIST PIVOT HEMIWALKER. PLANS FOR GIRP AROUND 0900
== END 2017-03-17 10:50 | DRG 64 ==
LOC: GNTU 01:45 → GICU 02:08 → GNTU 02:08 → GICU 03-12 04:00
PROVIDERS: Internal Medicine; ADMIT Internal Medicine
DX: I63.9 Cerebral infarction, unspecified (principal); I21.4 Non-ST elevation (NSTEMI) myocardial infarction; I50.20 Unspecified systolic (congestive) heart failure; I24.9 Acute ischemic heart disease, unspecified; I51.7 Cardiomegaly; F17.200 Nicotine dependence, unspecified, uncomplicated; I16.0 Hypertensive urgency; E87.6 Hypokalemia; R47.02 Dysphasia
CPT/HCPCS: C9113; J1644; J1940; J2270; J2405; J3480; J7030; J7040; J7050

== ENCOUNTER 2017-03-17 11:02 | Inpatient (IN) | payer MEDICARE ==
[~2017-03-17] VITALS: Ht 154.9 cm; Wt 52.7 kg
--- NOTE | ~2017-03-17 | CON ---
PATIENT'S NAME: ERICA MARTIN [facility] AGE: 66 Y [address] ROOM: G3428 [place], [place] [address] LOCATION: [facility] ADMIT DATE: 03/17/2017 Consultation DISCHARGE DATE: FAMILY PHYSICIAN: PHYSICIAN, NO ATTENDING PHYSICIAN: Allan Mckeon DATE OF CONSULTATION: 04/20/2017 REFERRING PHYSICIAN: Gavino Baldwin MD INITIAL PSYCHIATRIC EVALUATION/CONSULTATION. DATA: This is a 66-year-old -Surinamese male, date of 1950, currently admitted to [facility]. Consultation requested by Dr. Slater. DIAGNOSES: At the time of the evaluation, adjustment disorder with depression. RECOMMENDATION: The patient is not currently suicidal or homicidal, psychotic, manic, or hypomanic. No issues with obsession or compulsion, eating disorder, or gambling. So, the patient may resume normal course of medical management with some degree of observation within the normal observation on a patient in the unit. HISTORY: This gentleman ended up in the hospital recently with a stroke without any previous psychiatric history, but after having a stroke and having issues with aphasia was about to be discharged, but the discharge plan actually had to be cancelled and at the spur of the moment the patient stated that he wanted to kill himself. So, a Psychiatric consultation was requested. Nevertheless by now, the patient has already resume some level of normality seen by now the patient is no longer on a one-to-one and he is being constantly saying that he is not suicidal. Nevertheless, I came to [facility], reviewed the electronic records, the paper records, talked to the nurse for collateral information and talked to the patient on a one-to-one. I tried to contact the patient's son Bharat, but quite regretfully was not available on the phone. The patient again is still having an issue with communication; nevertheless, he does understand questions and communication is mostly or less a little bit retain is necessary at times, but again the patient is accepting the fact that he said that he wanted to , but he said that it was just again a spur of the moment kind of thing and that he is not currently suicidal, he denies any previous psychiatric hospitalization prior to the hospitalization, and denying major issues. He has never been psychotic, manic, or hypomanic. No issues with obsession and compulsion, eating disorder, post-traumatization, or PATIENT'S NAME: ERICA MARTIN [facility] AGE: 66 Y [address] ROOM: [place] [address] LOCATION: [facility] ADMIT DATE: 03/17/2017 Consultation DISCHARGE DATE: FAMILY PHYSICIAN: PHYSICIAN, NO ATTENDING PHYSICIAN: Allan Mckeon. SUBSTANCE USE HISTORY: He is a smoker, but not a heavy drinker or a drug user. PAST PSYCHIATRIC HISTORY: He has never been in a psychiatric institution, never suicidal before, no issues with previous psychotropic medication or therapy. MEDICAL HISTORY: Per H and P. PERSONAL HISTORY: He lives here in [place], [place], he is retired, has a son and a daughter, the daughter is still a minor, but the son is in college in [place]. HISTORY OF ABUSE: Noncontributory. The patient has never been abused physically, sexually, or psychologically. FAMILY HISTORY: Noncontributory. MENTAL STATUS EXAMINATION: This is an -Surinamese male, cooperative, good hygiene, good eye contact. No psychomotor agitation or retardation. His speech is still difficult to understand, but normal in volume and tone. Mood is just frustrated, but not irritable, not depressed, not anxious. Affect is broad and appropriate to thought content. Thought content is relevant by the patient denying suicidal or homicidal ideation, denying any auditory or visual hallucinations. No delusional thoughts. Thought was coherent, congruent. No loosening of association. Insight and judgment seemed to be fair. Memory is within normal limits. He is alert and oriented. Intelligence is average. STRENGTHS: Intelligence. BARRIERS: Speech. ДМИТРИЙ WEEKS MD PATIENT'S NAME: ERICA MARTIN [facility] AGE: 66 Y [address] ROOM: [place] [address] LOCATION: [facility] ADMIT DATE: 03/17/2017 Consultation DISCHARGE DATE: FAMILY PHYSICIAN: PHYSICIAN, NO ATTENDING PHYSICIAN: Allan Mckeon/josel /[id number] d: 04/21/17 0027 t: 04/21/17 1031, CONSULTATION REPORT
--- NOTE | ~2017-03-17 | DS ---
PATIENT'S NAME: ERICA MARTIN [facility] AGE: 66 Y [address] ROOM: G3428 [place] [address] LOCATION: [facility] ADMIT DATE: 03/17/2017 Discharge Summary DISCHARGE DATE: FAMILY PHYSICIAN: PHYSICIAN, NO ATTENDING PHYSICIAN: Alyx Mckeon [facility] COURSE: This Citizen [place] gentleman was admitted to rehab unit at [facility] on 03/17/2017 for continuous medical treatment and intensive rehabilitation with left hemiplegia secondary to CVA with unstable gait, dependent on activities of daily and self-care. He has made good progress. He is at the present time doing well. Alert and oriented. Vitals: Blood pressure was 147/73, temperature was 97.6, pulse was 87, and respirations were 16. His CMS is within normal limits, and his EGFR is 88. He can ambulate with single-point cane 250 feet x2. He is sometimes and can be hurrying to do things. Otherwise, he is fairly well and has made excellent progress. DISCHARGE FOLLOWUP: He will be given Home Health, PT, OT, and aide two times per week for the coming 4 weeks. I will see him thereafter. He will follow up with me in four weeks. He must follow with his family physician as soon as possible. DISCHARGE MEDICATIONS: He is at the present time, on the following medications 1. Norvasc 10 mg p.o. daily. 2. Aspirin 81 mg p.o. daily. 3. Lipitor 40 mg p.o. daily. 4. Coreg 6.25 mg twice daily. 5. Celexa 10 mg p.o. in the morning. 6. Plavix 75 mg p.o. daily. 7. Colace mg twice daily p.o. 8. NicoDerm 14 mg topical for two weeks and then 7 mg topical for another two weeks, and then discontinue. 9. Protonix 40 mg p.o. daily. 10. Tylenol 650 q.6 hours p.r.n., do not exceed acetaminophen 4 g, give 36 of them. 11. Milk of magnesia 30 mL p.o. daily p.r.n. PATIENT'S NAME: ERICA MARTIN [facility] AGE: 66 Y [address] ROOM: [facility] [place] [address] LOCATION: [facility] ADMIT DATE: 03/17/2017 Discharge Summary DISCHARGE DATE: FAMILY PHYSICIAN: PHYSICIAN, NO ATTENDING PHYSICIAN: Alyx Mckeon FINAL DIAGNOSES: 1. Unstable gait. 2. Dependent activities of daily and self-care. 3. Status post left hemiplegia secondary to CVA, ischemic in character. 4. Left-sided weakness with unstable gait, improving and impulsive on and off. 5. Hypertension. 6. Dyslipidemia. 7. Depression. 8. Reflux gastric disease. 9. Tobacco use per history. DISCHARGE INSTRUCTIONS: The patient will not drive and/or operate any mechanical device until he is re-evaluated. He is to follow with his family physician as soon as possible. I will see him in another four weeks. He will be on Home Health, PT, OT, and aide. All the above was explained to him in detail. He verbalized understanding and agreement. ALYX MCKEON MD WMS/modl /[id number] d: 04/18/17 0639 t: 04/19/17 0810, DISCHARGE SUMMARY
--- NOTE | ~2017-03-17 | CON ---
PATIENT'S NAME: ERICA MARTIN [facility] AGE: 66 Y [address] ROOM: G3428 [place], [place] [address] LOCATION: [facility] ADMIT DATE: 03/17/2017 Consultation DISCHARGE DATE: FAMILY PHYSICIAN: PHYSICIAN, NO ATTENDING PHYSICIAN: Allan Washington DATE OF CONSULTATION: 04/07/2017 REFERRING PHYSICIAN: Gavino Baldwin MD Team members reporting include Dr. Washington; Venessa Grey, social media editor, inpatient rehab nursing staff; Dinah Dillard, PT; Liliana Grider, PT; Faby García, OT; Kaci Hawkins, Speech Therapy; Claudia Escalera, therapeutic recreational; and sister Josie Ballard, Pastoral Care. CURRENT STATUS: Chaparro Islas is a 66-year-old man, admitted to our inpatient rehabilitation unit following a CVA with left hemiplegia. The patient will be having a stress test. The patient is continent of bowel and bladder. He is on a regular diet. Intake has improved. Prealbumin is 28. The patient can transfer sit to supine and supine to sit independently; sit to stand and stand to sit, standby; and bed to chair and chair to bed, standby. He can walk 300 feet with a single-point cane at standby assistance with occasional loss of balance. He can climb three flights of stairs at standby assistance. He has met 4/5 short-term PT goals. The patient is very impulsive. The patient can dress his upper and lower body at minimal assistance; grooming, standby; bathing, contact guard assistance; and toilet transfers, contact guard assistance. His left upper extremity is improving. He has met 5/5 short-term OT goals. Comprehension is at minimal assistance. Language and expression, moderate to minimal assistance. Memory and problem solving, minimal assistance; swallowing, standby assist. Car transfers are currently at contact guard assistance. The patient does not like to follow directions. DISCHARGE PLAN: The patient is receiving 3 hours of PT, OT and Speech Thursday through Thursday. The patient has daily rehab, nursing, and physiatry involvement as well as therapeutic recreational services. The patient has shown functional improvement and is progressing. Please see his plan of care for specific goals. Plan is for patient to discharge soon. We are looking to try to find somebody that can be with patient 16/03 for supervision as the patient can be unsafe. VENESSA GREY FOR ALLAN WASHINGTON MD PATIENT'S NAME: ERICA MARTIN [facility] AGE: 66 Y [address] ROOM: [place] [address] LOCATION: [facility] ADMIT DATE: 03/17/2017 Consultation DISCHARGE DATE: FAMILY PHYSICIAN: JULIETTE WHITNEY ATTENDING PHYSICIAN: Allan Washington TD/jeanie /[id number] d: 04/21/17 0019 t: 05/05/17 0713, CONSULTATION REPORT
--- NOTE | ~2017-03-17 | DS ---
PATIENT'S NAME: ERICA MARTIN [facility] AGE: 66 Y [address] ROOM: G3428 [place], [place] [address] LOCATION: [facility] ADMIT DATE: 03/17/2017 Discharge Summary DISCHARGE DATE: 05/01/2017 FAMILY PHYSICIAN: PHYSICIAN, NO ATTENDING PHYSICIAN: Allan Mckeon This gentleman was admitted to rehab unit at [place], [place] for continuous medical treatment and intensive rehabilitation on 03/17/2017, and he was with left hemiplegia secondary to CVA, hypertension, and also dyslipidemia and also depression with gastric reflux disease. We tried to discharge him to home, however, that did not work and the intent was to discharge him on 04/18 and that was put on hold until now. He is now going to be [facility] to [facility] here in [place], [place] on 05/01/2017. He will continue on outpatient basis for PT/OT and Speech 3 times per week for the coming 4 weeks, I will see him thereafter. He should follow with his family physician as soon as possible. He is not to drive and/or operate any mechanical or electrical device until he is re-evaluated. He is at the present time doing well, alert, oriented, can ambulate in excess of 900 feet at times and with supervision, and still addressing frequency of efficiency. Sometimes, he gets too relaxed and probably needs redirection. He is doing well, alert, oriented. Vitals today were as follows: Blood pressure 160/75, temperature 98.5, pulse 65, respirations 20. His potassium was at one time relatively low, that has been addressed and now he is doing well. He is on the following medications: 1. Norvasc 10 mg p.o. daily for 30 days. 2. Aspirin 81 mg p.o. daily, give for 30 days. 3. Lipitor 40 mg p.o. daily, give for 30 days. 4. Coreg 6.25 mg b.i.d. with meals, give for 30 days. 5. Celexa 20 mg in a.m. daily, give for 30 days. 6. Plavix 75 mg p.o. give for 30 days. 7. Tylenol 650 p.o. q.6 hours, do not exceed acetaminophen 4 g q.24 hours, give 36 of them. 8. MOM 30 mL p.o. daily. PATIENT'S NAME: ERICA MARTIN [facility] AGE: 66 Y [address] ROOM: [address] [place] [address] LOCATION: [facility] ADMIT DATE: 03/17/2017 Discharge Summary DISCHARGE DATE: 05/01/2017 FAMILY PHYSICIAN: PHYSICIAN, NO ATTENDING PHYSICIAN: Allan Mckeon FINAL DIAGNOSES: 1. Unstable gait. 2. Dependent activities of daily and self-care. 3. Hypertension. 4. Left hemiplegia secondary to cerebrovascular accident. 5. Depression. 6. Gastric reflux disease, controlled at the same time. 7. Tobacco use, now has received treatment and is tobacco free. 8. Hypokalemia, corrected. He should not drive and/or operate any mechanical device at the present time. I will see him in 4 weeks. He will continue on outpatient basis PT/OT and Speech and I have encouraged him strongly to follow with his family physician as soon as possible. All the above was explained to him in detail. He verbalized understanding and agreement with the plan of care. MD FLOR VASQUEZ/josel /[id number] d: 05/02/17 0251 t: 05/05/17 0718, DISCHARGE SUMMARY
--- NOTE | ~2017-03-17 | ENPV ---
Vascular Lower Extremities DVT Study Procedure Demographics Patient Name ERICA MARTIN Date of Study 04/14/2017 Patient Number [id number] Gender Male Date of 1950 Age 66 Visit Number [id number] Height 61 Accession Number [id number] Weight 119 Referring Allan Mckeon Interpreting Jericho Liao MD Physician Physician Physician Ordering Physician Shear Assembler [place] Operator Dinah Murdock, RT,RVT,RDCS Alley Emmanuel BS, RT Conclusions Summary No evidence of deep vein thrombosis or superficial thrombophlebitis in the lower extremities bilaterally . Rouleaux flow bilaterally from the popliteal through the calf veins. Procedure Type of Study: Veins:Lower Extremities DVT Study, Venous Duplex Lower Extremity Bilateral. Indications for Study:Pain in Limb. Additional Indications:Bilateral calf pain Patient Status:Routine. Study Location:Inpatient Portable. Technical Quality:Adequate visualization. Risk Factors - The patient's risk factor(s) include: dyslipidemia, lack of physical activity and arterial hypertension. Velocities are measured in cm/s ; Diameters are measured in cm Right Lower Extremities DVT Study Measurements Right 2D and Doppler Measurements + + + + +------+------+ + !Location !Visualized!Compressibility!Thrombosis!Signal!Reflux!Reflux ! ! ! ! ! ! ! !(sec) ! + + + + +------+------+ + !GSV Thigh !Yes !Yes !None !Phasic!No ! ! + + + + +------+------+ + !Common !Yes !Yes !None !Phasic!No ! ! !Femoral ! ! ! ! ! ! ! + + + + +------+------+ + !Prox !Yes !Yes !None !Phasic!No ! ! !Femoral ! ! ! ! ! ! ! + + + + +------+------+ + !Mid Femoral!Yes !Yes !None !Phasic!No ! ! + + + + +------+------+ + !Dist !Yes !Yes !None !Phasic!No ! ! !Femoral ! ! ! ! ! ! ! + + + + +------+------+ + !Popliteal !Yes !Yes !None !Phasic!No ! ! + + + + +------+------+ + !Gastroc !Yes !Yes !None !Phasic!No ! ! + + + + +------+------+ + !PTV !Yes !Yes !None !Phasic!No ! ! + + + + +------+------+ + !Peroneal !Yes !Yes !None !Phasic!No ! ! + + + + +------+------+ + Left Lower Extremities DVT Study Measurements Left 2D and Doppler Measurements + + + + +------+------+ + !Location !Visualized!Compressibility!Thrombosis!Signal!Reflux!Reflux ! ! ! ! ! ! ! !(sec) ! + + + + +------+------+ + !GSV Thigh !Yes !Yes !None !Phasic!No ! ! + + + + +------+------+ + !Common !Yes !Yes !None !Phasic!No ! ! !Femoral ! ! ! ! ! ! ! + + + + +------+------+ + !Prox !Yes !Yes !None !Phasic!No ! ! !Femoral ! ! ! ! ! ! ! + + + + +------+------+ + !Mid Femoral!Yes !Yes !None !Phasic!No ! ! + + + + +------+------+ + !Dist !Yes !Yes !None !Phasic!No ! ! !Femoral ! ! ! ! ! ! ! + + + + +------+------+ + !Popliteal !Yes !Yes !None !Phasic!No ! ! + + + + +------+------+ + !Gastroc !Yes !Yes !None !Phasic!No ! ! + + + + +------+------+ + !PTV !Yes !Yes !None !Phasic!No ! ! + + + + +------+------+ + !Peroneal !Yes !Yes !None !Phasic!No ! ! + + + + +------+------+ + Signature dtt: SAM CHRISTIANSON dtwesley: 04/14/17 [facility] Physician Noe Tee
--- NOTE | ~2017-03-17 | CON ---
PATIENT'S NAME: ERICA MARTIN [facility] AGE: 66 Y [address] ROOM: [address] [place], [place] [address] LOCATION: [facility] ADMIT DATE: 03/17/2017 Consultation DISCHARGE DATE: 05/01/2017 FAMILY PHYSICIAN: PHYSICIAN, NO ATTENDING PHYSICIAN: Allan Washington DATE OF CONSULTATION: 04/21/2017 REFERRING PHYSICIAN: Gavino Baldwin MD Team members reporting include: Dr. Washington; Venessa Grey, health and social care teacher; inpatient rehab nursing staff Dinah Dillard, PT; Liliana Grider, PT; Rozina Escalona OT; Kaci Hawkins, Speech Therapy; Claudia Escalera, therapeutic rec; and Sister Josie Ballard, Pastoral Care. CURRENT STATUS: Chaparro Islas is a 66-year-old man, admitted to our inpatient rehab unit on March 17, 2017, following a CVA. The patient is currently on a regular diet. He can transfer sit to supine and supine to sit independently; sit to stand and stand to sit, mod I to independent, and bed to chair and chair to bed, mod I is to independence. He can walk 20 minutes outdoors. He has limited safety when crossing street. He can complete stairs at mod I to independence. He has met all of his long-term goals. The patient can dress his upper body and lower body at standby; grooming and bathing standby, toilet and shower transfers, standby; feeding, standby. He is basically mod I across the board for all of his ADLs. He continues to have left upper extremity weakness, but it is getting better. He has met 10/14 long-term OT goals and 5/5 short-term OT goals. The patient's comprehension is at minimal assistance. Language and expression, moderate to minimal assistance. Memory standby problem solving, minimal to standby assistance and swallow standby. Car transfers are currently at standby to mod I. DISCHARGE PLAN: The patient is receiving 3 hours of PT, OT, and Speech Thursday through Thursday. The patient has daily rehab, nursing, and physiatry involvement as well as therapeutic recreational services. The patient has shown functional improvement and is progressing. Please see his plan of care for specific goals. Plan is for patient to discharge as soon as discharge plan can be figured out. The patient's living situation is unknown and the patient will need supervision upon discharge. VENESSA GREY FOR ALLAN WASHINGTON MD PATIENT'S NAME: ERICA MARTIN [facility] AGE: 66 Y [address] ROOM: [place] [address] LOCATION: [facility] ADMIT DATE: 03/17/2017 Consultation DISCHARGE DATE: 05/01/2017 FAMILY PHYSICIAN: JULIETTE WHITNEY ATTENDING PHYSICIAN: Allan Washington TD/jeanie /[id number] d: t: 05/07/17 2147, CONSULTATION REPORT
--- NOTE | ~2017-03-17 | CON ---
PATIENT'S NAME: ERICA MARTIN [facility] AGE: 66 Y [address] ROOM: G[address] [place], [place] [address] LOCATION: [facility] ADMIT DATE: 03/17/2017 Consultation DISCHARGE DATE: 05/01/2017 FAMILY PHYSICIAN: PHYSICIAN, NO ATTENDING PHYSICIAN: Allan Washington DATE OF CONSULTATION: 04/28/2017 REFERRING PHYSICIAN: Gavino Baldwin MD Team members reporting include: Dr. Washington; Venessa Grey, social work supervisor; inpatient rehabilitation nursing staff; Dinah Dillard, PT; Liliana Grider, PT; Faby García, OT; Kaci Hawkins, Speech Therapy; Claudia Escalera, therapeutic rec; and Sister Josie Ballard, Pastoral Care. CURRENT STATUS: Erica is a 66-year-old man, admitted to our inpatient rehabilitation unit following a CVA. The patient is currently continent of bowel and bladder. He is occasionally incontinent. He is on a regular diet. Prealbumin is 31. He is independent with all of his transfers. He has met 8/9 long-term PT goals. He is modified independence to independent with all of his OT goals. He has met 07/07 long-term OT goals. He is weak in his left arm but has movement. Comprehension is at minimal to moderate assistance. Language and expression are minimal to moderate assistance. Memory and problem solving, standby. Car transfers are standby to modified independence. DISCHARGE PLAN: The patient is receiving 3 hours of PT, OT, and speech Thursday through Thursday. The patient has daily rehabilitation, nursing, and physiatry involvement as well as Therapeutic Recreational Services. The patient has shown functional improvement and is progressing. Please see his plan of care for specific goals. Plan is for patient to discharge soon working on discharge plan with patient's son Bharat. The address in the computer is actually house where patient has just been staying. The patient has just been living from place to place, it sounds like and does not actually have a home of his own. We will continue to work on discharge plan with patient's son Bharat. VENESSA WASHINGTON MD TD/modl /[id number] d: t: 05/07/17 2149, CONSULTATION REPORT
--- NOTE | ~2017-03-17 | CON ---
PATIENT'S NAME: ERICA MARTIN [facility] AGE: 66 Y [address] ROOM: [address]3428 [place] [address] LOCATION: [facility] ADMIT DATE: 03/17/2017 Consultation DISCHARGE DATE: FAMILY PHYSICIAN: PHYSICIAN, NO ATTENDING PHYSICIAN: Allan Washington DATE OF CONSULTATION: 03/31/2017 REFERRING PHYSICIAN: Gavino Baldwin MD Team members reporting include Dr. Washington; Venessa Grey, sexual assault social worker, inpatient rehab nursing staff; Dinah Dillard, PT; Liliana Grider, PT; Faby García, OT; Kaci Hawkins, Speech Therapy; Claudia Escalera, therapeutic rec; and sister Josie Ballard, Pastoral Care. CURRENT STATUS: Erica is a 66-year-old man admitted to our inpatient rehab unit on March 17, 2017, following a CVA with left hemiplegia. He is currently continent of bowel and bladder, no skin or pain issues. He is on a cardiac diet. We did liberalize his diet to regular diet. He can complete sit to supine transfers at standby with verbal cues needed; supine to sit transfers, contact guard assistance; sit to stand and stand to sit transfers, contact guard assistance; and bed to chair and chair to bed transfers, contact guard assistance. He can walk 300 feet with a single-point cane at contact guard assistance to minimal assistance. He can climb 19 stairs with one railing at contact guard assistance with occasional minimal assistance. His balance overall is impaired. He has left inattention and apraxia. He has met 4/5 short-term PT goals. The patient can dress his upper body at minimal assistance; lower body, max; grooming, standby; bathing, max. Toilet transfers, minimal assistance; toileting, moderate assistance; shower transfers, contact guard assistance; feeding, standby. Left arm does continue to improve. He is showing some shoulder strength in that left shoulder. He has met 3/5 short- term OT goals. Comprehension is at minimal assistance. Language and expression, minimal to moderate assistance. Memory, minimal assistance. Problem solving, minimal to moderate assistance. Still showing left neglect. Car transfers are currently at contact guard assistance, can be minimal assistance as the patient is impulsive. The patient likes to do tasks on the computer. The patient does need to be encouraged to do oral cares. The patient does not like to do E stimulation to his face. DISCHARGE PLAN: The patient is receiving 3 hours of PT, OT, and Speech Thursday through Thursday. The patient has daily rehab, nursing, and Physiatry involvement as well as Therapeutic Recreational Services. The patient has shown functional improvement and is progressing. Please see his plan of care for specific goals. Plan is for the patient to discharge soon. PATIENT'S NAME: ERICA MARTIN [facility] AGE: 66 Y [address] ROOM: [place] [address] LOCATION: [facility] ADMIT DATE: 03/17/2017 Consultation DISCHARGE DATE: FAMILY PHYSICIAN: PHYSICIAN, JULIETTE ATTENDING PHYSICIAN: Allan Washington VENESSA GREY FOR ALLAN WASHINGTON MD TD/modl /[id number] d: 04/20/17 2336 t: 05/05/17 0710, CONSULTATION REPORT
--- NOTE | ~2017-03-17 | CON ---
PATIENT'S NAME: ERICA MARTIN [facility] AGE: 66 Y [address] ROOM: G3428 [place], [place] [address] LOCATION: [facility] ADMIT DATE: 03/17/2017 Consultation DISCHARGE DATE: FAMILY PHYSICIAN: PHYSICIAN, NO ATTENDING PHYSICIAN: Allan Washington DATE OF CONSULTATION: 03/24/2017 REFERRING PHYSICIAN: Gavino Baldwin MD TEAM MEMBERS REPORTING: Include Dr. Washington; Venessa Grey. domestic laundry worker; Estela Martines RN; Dinah Dillard, PT; Liliana Grider, PT; Faby García, OT; Kaci Hawkins, Speech Therapy; Claudia Escalera, therapeutic rec; and Sister Josie Fernandez, pastoral Care. CURRENT STATUS: Erica is a 66-year-old man, admitted to our inpatient rehab unit following a stroke. The patient is on a cardiac soft diet. One-to-one feeds at times. He can transfer dln-kl-ukwvnz at contact guard assistance; gbuqfi-rt-fak minimal assistance; hdc-na-tikrq and jhjmq-dj-ech contact guard assistance; and pne-ca-sxdao contact guard assistance to minimal assistance. He can walk with a single-point cane 200 feet at contact guard assistance to minimal assistance. He has impaired motor planning. He can climb 8 stairs with one railing at minimal assistance. He is dependent for lower body and upper body dressing; contact guard assistance for grooming; bathing max assistance; toilet transfers contact guard assistance. He is very impulsive at times. Left upper extremity is active in the shoulder. The patient's comprehension is at sjhnktvy-dm-fvydizh assistance; language and expression minimal assistance; car transfers are currently at minimal assistance. Psychiatrist to see the patient for depression. The patient's hospitalist did order lactated Ringer's, ordered as a bolus due to low urine output. DISCHARGE PLAN: The patient is receiving 3 hours of PT, OT, and speech Thursday through Thursday. The patient has daily rehab, nursing, and physiatry involvement as well as therapeutic recreational services. The patient has shown functional improvement and is progressing. Please see his plan of care for specific goals. Plan is for the patient to discharge in approximately 2 to 3 weeks. The patient does live alone, so the patient may need to go to a custodial facility. VENESSA GREY FOR ALLAN WASHINGTON MD PATIENT'S NAME: ERICA MARTIN [facility] AGE: 66 Y [address] ROOM: [place] [address] LOCATION: [facility] ADMIT DATE: 03/17/2017 Consultation DISCHARGE DATE: FAMILY PHYSICIAN: JULIETTE WHITNEY ATTENDING PHYSICIAN: Allan Washington TD/josel /[id number] d: 03/29/17 1758 t: 05/05/17 0708, CONSULTATION REPORT
--- NOTE | ~2017-03-17 | CON ---
PATIENT'S NAME: ERICA MARTIN [facility] AGE: 66 Y [address] ROOM: [place] [address] LOCATION: [facility] ADMIT DATE: 03/17/2017 Consultation DISCHARGE DATE: FAMILY PHYSICIAN: PHYSICIAN, NO ATTENDING PHYSICIAN: Allan Mckeon DATE OF CONSULTATION: 03/25/2017 REFERRING PHYSICIAN: Gavino Baldwin MD INITIAL PSYCHIATRIC EVALUATION/CONSULTATION DATA: This is a 66-year-old, Syrian male, currently admitted to [facility]. Consultation is requested by Dr. Allan Mckeon. REQUESTING PHYSICIAN: Allan Mckeon MD DIAGNOSES: At the time of the evaluation: 1. Adjustment disorder with depressed mood. 2. Rest of the diagnoses per H and P. RECOMMENDATIONS: After talking about the risks, benefits, and side effects, the patient consented for a trial on Remeron to help with depression and sleep. HISTORY: This gentleman ended up in [facility] after a stroke and he has been battling quite a bit of problems because of it and seeing him depressed and complaining of depression, a psychiatric consultation was requested. So, I came to [facility], reviewed the electronic records, the paper records, talked to the nurse for collateral information, and with the patient on a wpaz-ee-nlbj. The conversation with this gentleman was somewhat difficult, again because of the stroke and the aphasia that he is facing. The patient used to be very fluent in Palauan. Right now, it is difficult for him, nevertheless, the conversation was still possible just somewhat concrete and somewhat short. The patient is complaining of situational depression that happened because of the stroke. The patient denies any prior psychiatric history. No prior history of any psychosis, harry, hypomania, obsessive compulsive eating disorder, post-traumatization, or gambling, and the patient is not endorsing any suicidal ideas. He is complaining of problems with his current sleep and depression. SUBSTANCE USE HISTORY: PATIENT'S NAME: ERICA MARTIN [facility] AGE: 66 Y [address] ROOM: [place] [address] LOCATION: [facility] ADMIT DATE: 03/17/2017 Consultation DISCHARGE DATE: FAMILY PHYSICIAN: PHYSICIAN, NO ATTENDING PHYSICIAN: Allan Mckeon Noncontributory. No previous smoking, excessive drinking, or drug use. PAST PSYCHIATRIC HISTORY: Again negative. There are no previous hospitalizations. No previous suicide attempts. MEDICAL HISTORY: Per H and P. PERSONAL HISTORY: The patient has a son and a . He is retired and living around town. HISTORY OF ABUSE: Noncontributory. Thought we do not have any records indicating that patient has been abused physically, sexually, or psychologically. FAMILY HISTORY: Noncontributory. MENTAL STATUS EXAMINATION: An Syrian gentleman, cooperative, good hygiene, and good eye contact. No psychomotor agitation or retardation. His speech is odd in production and difficult to understand. Mood is depressed. Affect is restricted, appropriate to thought content. Thought content is relevant by the patient denying suicidal or homicidal ideations. No auditory or visual hallucinations. No delusional thoughts. Thought process is coherent, congruent. No loosening of association. Insight and judgment seem to be fair. Memory was not tested formally. He is alert and oriented. Intelligence is average. STRENGTHS: Intelligence and access to services. BARRIERS: Just physical health. ДМИТРИЙ WEEKS MD HG/modl /[id number] d: 03/26/17 1208 t: 03/30/17 1105, CONSULTATION REPORT
--- NOTE | ~2017-03-17 | ESTC ---
Cardiac Perfusion Imaging Demographics Patient Name MARIO Emmanuel Gender Male Patient Number [id number] Race Visit Number [id number] Ethnicity Corporate ID Room Number G3428 Accession Number [id number] Height 61 inches Date of 1950 Weight 119 pounds Interpreting Physician Bebe Lai Date of study 04/08/2017 Lotus Jean MD Supervising MD/MALAIKAP Lotus Jean NM Technologist Mikael Wallace MD Ordering Physician Lotus Jean Stress MD hemodialysis lab technician Stress ECG Reading Lotus Jean Nurse Isaac Goldstein Physician MD Bebe Lai The procedure was explained in detail to the patient. Risks, complications and alternative treatments were reviewed. Written consent was obtained. Medications Reviewed with Patient prior to Procedure. Procedure Procedure Type: Nuclear Stress Test:Pharmacological, Lexiscan, Cardiolite Stress Test Procedure Start time: 04/08/2017 08:30 Indications: NSTEMI. Risk Factors The patient risk factors include:cerebrovascular disease, physical activity, hypercholesterolemia, hypertension and dyslipidemia. Conclusions Summary Perfusion Images: The overall quality of the study is fair, due to gastrointestinal tracer uptake. Left ventricular cavity is noted to be enlarged on the stress and enlarged on the rest images. There is no evidence of abnormal lung activity. The right ventricle is not visualized an cannot be assessed. Impression ECG portion of the lexiscan stress test is nondiagnostic for ischemia by diagnostic criteria due to baseline ST changes. Myocardial perfusion imaging is moderately abnormal. The images reveal a mostly fixed defect in the entire inferior wall consistent with infarct in the territory of the right coronary artery . Overall left ventricular systolic function was abnormal. Calculated LVEF is 40% and TID ratio is 1.15. This is a intermediate risk stress test. There are no previous studies for comparison . Stress Protocols Resting ECG Sinus rhythm, LVH with repolarization abnormalities Pre-stress physical exam: Patient assessed by Dr Spence prior to testing. Predicted HR: 153 bpm ECG Findings Indeterminate ECG due to baseline abnormalities. Arrhythmias No rhythm abnormality. Symptoms Abdominal discomfort Stress Interpretation ECG portion of stress test is non diagnostic due to baseline abnormalities. Nuclear images are pending. Imaging Results Summed scores - Summed stress score: 7 - Summed rest score: 4 - Summed difference score: 3 Stress ejection Ejection fraction:40 % EDV :151 ml ESV :90 ml Stroke volume :61 ml LV mass :161 gr Imaging Protocols Rest Stress Isotope:Tc99m Sestamibi IV Isotope: Tc99m Sestamibi IV Isotope dose:9.7 mCi Isotope dose:31.1 mCi Date:04/08/2017 07:07 Date:04/08/2017 08:56 Technique: SPECT Technique: Gated Supine SPECT Supine IV remains in place after procedure. Scan Time:45-60 minutes post Scan Time:45-60 minutes post injection injection Procedure Medications - Regadenoson (Lexiscan) 0.4 mg IV over 10-15 sec. I.V. 0.4 mg. Medications administered per verbal order and read back to physician prior to administration. Medical History Admission Data Admission date: 03/17/2017 Admission Time: 11:02 Hospital Status: Inpatient. Signatures dtt: XIOMARA RAMIREZ dtd: 04/08/17 0830 Physician Self Edit
--- NOTE | ~2017-03-17 | CON ---
PATIENT'S NAME: ERICA MARTIN [facility] AGE: 66 Y [address] ROOM: G3428 [place], [place] [address] LOCATION: [facility] ADMIT DATE: 03/17/2017 Consultation DISCHARGE DATE: FAMILY PHYSICIAN: PHYSICIAN, NO ATTENDING PHYSICIAN: Allan Washington DATE OF CONSULTATION: 02/15/2017 REFERRING PHYSICIAN: Gavino Baldwin MD TEAM MEMBERS REPORTING: Include: Dr. Wahsington; Venessa Grey, social science analyst; Estela Martines RN; Dinah Dillard, PT; Liliana Grider, PT; Faby García, OT; Kaci Hawkins, Speech Therapy; Claudia Escalera, therapeutic recreation; and Sister Josie Ballard, [place] Care. CURRENT STATUS: Erica Mayfield is a 66-year-old man, admitted to our inpatient rehab unit on March 17, 2017, following a CVA. The patient did fall on the over on the acute care side, he is at a high fall risk. He is to assist his left arm is flaccid. He is incontinent of bowel and bladder. He can transfer sit to supine, moderate to dependent and supine to sit, minimal to moderate. He can walk 160 feet with hand-held assistance. Very poor balance and decreased sensation in his bilateral lower extremities. Stairs have not been done yet. There is a language barrier as the patient is Com[place]an speaking, however, he does seem to understand some Syriac. Dr. Washington did order E stim orders and Kinesio tape as well as a glove in a sling for the patient. He is to have full range of motion in his left upper extremity. The patient's comprehension, language, and expression are at moderate assistance. Swallowing is minimal assistance. Planning to do another modified barium swallow on Thursday to rule out aspiration. Car transfers have not been done at this time. The patient is doing some pocketing of his food. DISCHARGE PLAN: The patient is receiving 3 hours of PT, OT, and speech Thursday through Thursday. The patient has daily rehab, nursing, and physiatry involvement as well as therapeutic recreational services. The patient has shown functional improvement and is progressing. Please see his plan of care for specific goals. Plan is for the patient to discharge in approximately 3 to 4 weeks. The plan is for the patient to hopefully be able to return to home. However, the patient may require a longterm facility if he does live alone. VENESSA GREY FOR ALLAN WASHINGTON MD PATIENT'S NAME: ERICA MARTIN [facility] AGE: 66 Y [address] ROOM: [place] [address] LOCATION: [facility] ADMIT DATE: 03/17/2017 Consultation DISCHARGE DATE: FAMILY PHYSICIAN: PHYSICIAN, JULIETTE ATTENDING PHYSICIAN: Allan Washington TD/josel /[id number] d: 03/29/17 175 t: 05/05/17 0705, CONSULTATION REPORT
--- NOTE | ~2017-03-17 | HP ---
PATIENT'S NAME: ERICA MARTIN [facility] AGE: 66 Y [address] ROOM: [place] [address] LOCATION: [facility] ADMIT DATE: 03/17/2017 History & Physical DISCHARGE DATE: FAMILY PHYSICIAN: PHYSICIAN, NO ATTENDING PHYSICIAN: Aylx Mckeon DATE OF SERVICE: HISTORY OF PRESENT ILLNESS: This 66-year-old gentleman, who is unable to speak Estonian, but understands fairly well and follows instructions well, is admitted for continuous medical treatment and intensive rehabilitation. 1. He is with unstable gait. 2. Dependent in activities of daily self-care. 3. Status post left hemiplegia secondary to ischemic stroke, marked unstable gait, and slurred speech initially with neglect of the left side, at high risk of falling. He is admitted for continuous medical treatment and intensive rehabilitation. ALLERGIES: NO REPORTED ALLERGIES. PHYSICAL EXAMINATION: GENERAL: He is, at the present time, alert and oriented. VITAL SIGNS: Blood pressure 182/78, temperature 97.9, pulse 67, respiration rate 20 to 21. He is 5 feet 1 inch tall and weighs 60.8 kg. NEUROLOGIC: He can follow instructions. Can transfer with minimum assistance, however, for stabilization, safety, and pivots transfer. He is able to ambulate up to 50 feet to 60 feet with minimum assistance; however, he depends mostly on his hands to support himself. MEDICATIONS: He is on the following medications: 1. Sodium chloride 0.9% 1000 mL IV floor stock. 2. Aspirin 81 mg p.o. daily. 3. Lipitor 80 mg p.o. daily. 4. Lisinopril 20 mg p.o. daily. 5. Lopressor 5 mg IV q.6 hours, hold if systolic blood pressure below 100 and/or heart rate is below 60. 6. Nicotine patch 21 mg daily. 7. Protonix 40 mg IV daily. 8. Tylenol 650 q.6 hours, do not exceed acetaminophen 4 g q.24 hours. 9. Morphine sulfate 2 to 4 mg IV as needed for chest pain. 10. Zofran 4 mg IV q.6 hours. PATIENT'S NAME: ERICA MARTIN [facility] AGE: 66 Y [address] ROOM: [place] [address] LOCATION: [facility] ADMIT DATE: 03/17/2017 History & Physical DISCHARGE DATE: FAMILY PHYSICIAN: PHYSICIAN, NO ATTENDING PHYSICIAN: Alyx Mckeon 11. NaCl for flush as per protocol. I saw this gentleman on initial evaluation on 03/12 and recommended intensive rehab for about 3 weeks, aiming to discharge home at [facility] today and on admission day, 03/17, I re-evaluated him. I feel that he will benefit from intensive rehabilitation for about 3 weeks, aiming to discharge home on [facility]. PAST MEDICAL HISTORY: Past history of significance: 1. History of chest pain. 2. Hypertension. 3. Tobacco use. LABORATORY DATA: His lab work is as follows: CBC: White BC 9.7, RBC 5.35, hemoglobin 14.5, hematocrit 44.0, platelets 262. CMS: Sodium 135, potassium 3.5, chloride 102, CO2 of 25, BUN 16, creatinine 0.9, and glucose 83. UA is within normal limits. Prealbumin is 23. ASSESSMENT AND PLAN: We will do a modified barium swallow per PT today and on 03/18, and she will advise. We will apply Isotoner glove on the left hand, do E stimulation to left deltoid and supraspinatus muscle, and also we will have a taping for the left shoulder. We will use sling on the left arm. We will put on intensive PT, OT, and speech 3 hours per day, 15 hours per week for about 3 weeks, aiming to discharge at [facility]. We will keep on hospitalist and neurologist to follow as needed. All the above was explained to him in detail. He verbalized understanding and nodded his head and agreement with the plan of care. ALYX MCKEON MD WMS/josel PATIENT'S NAME: ERICA MARTIN [facility] AGE: 66 Y [address] ROOM: [address] [place] [address] LOCATION: [facility] ADMIT DATE: 03/17/2017 History & Physical DISCHARGE DATE: FAMILY PHYSICIAN: PHYSICIAN, NO ATTENDING PHYSICIAN: Alyx Mckeon /[id number] D: [id number] T: [id number] HISTORY & PHYSICAL
--- NOTE | ~2017-03-17 | CON ---
PATIENT'S NAME: ERICA MARTIN [facility] AGE: 66 Y [address] ROOM: [address] [place], [place] [address] LOCATION: [facility] ADMIT DATE: 03/17/2017 Consultation DISCHARGE DATE: FAMILY PHYSICIAN: PHYSICIAN, NO ATTENDING PHYSICIAN: Allan Washington DATE OF CONSULTATION: 04/14/2017 REFERRING PHYSICIAN: Gavino Baldwin MD TEAM MEMBERS REPORTING: Dr. Washington; Venessa Grey, manager social media; inpatient rehab nursing staff; Dinah Dillard, PT; Liliana Grider, PT; Faby García, OT; Kaci Hawkins, Speech Therapy; Claudia Escalera, therapeutic rec; and Sister Josie Ballard, Pastoral Care. CURRENT STATUS: Erica is a 66-year-old man, who was admitted to our inpatient rehab unit status post CVA. The patient's intake is regular food. He is able to complete all of his transfers independently. He can ambulate 200 feet with a single-point cane at mod I. He can climb 20 stairs with one railing, going up standby assistance, coming down mod I. The patient continues to be impulsive. He can dress his upper and lower body at standby; grooming and bathing, standby; toilet transfer, standby; toileting, standby; feeding, standby; left arm is making progress. He has met 9/14 long-term OT goals and 3/5 short-term OT goals. Comprehension, min assistance; language and expression, minimal to moderate assistance; memory, minimal assistance to standby; problem solving, minimal assistance to standby; car transfers are currently at standby. DISCHARGE PLAN: The patient is receiving 3 hours of PT, OT and Speech Thursday through Thursday. The patient has daily rehab, nursing, and physiatry involvement as well as therapeutic recreational services. The patient has shown functional improvement and is progressing. Please see his plan of care for specific goals. Plan is for the patient to discharge soon. We are working on trying to find somebody that can stay with the patient for intermittent supervision. VENESSA WASHINGTON MD TD/modl /[id number] d: 04/21/17 0040 t: 05/05/17 0715, CONSULTATION REPORT
[~2017-03-17 11:02] MED LIST: TYLENOL EXTRA500 MG PO
[2017-03-17 14:22] LABS: BILIRUBIN URINE NEGATIVE (NEGATIVE); BLOOD URINE 10 /UL (NEGATIVE); COLOR URINE YELLOW (YELLOW); GLUCOSE URINE NEGATIVE (NEGATIVE); KETONE URINE NEGATIVE (NEGATIVE); LEUKOCYTES URINE NEGATIVE /UL (NEGATIVE); NITRITE URINE NEGATIVE (NEGATIVE); PROTEIN URINE NEGATIVE (NEGATIVE); TURBIDITY URINE CLEAR (CLEAR); UROBILINOGEN URINE NORMAL (NORMAL)
[2017-03-17 14:37] LABS: BACTERIA URINE RARE (NEGATIVE); EPITHELIAL URINE 0-2 #/HPF (NEGATIVE); RBC URINE 0-2 #/HPF (NEGATIVE); WBC URINE NEGATIVE #/HPF (NEGATIVE)
--- NOTE | 2017-03-17 16:37 | NUR ---
Significant Event: Patient alert but is aphasic and has limited Spanish. Can write on paper his needs if unable to communicate verbally. Speech is garbled and somewhat slurred. Had a CVA. Left sided weakness. Left arm flaccid. Left leg has some movement. Transfers with 2 assist pivot transfer. Very unsteady. Impulsive, needs alarms. On a high low bed. Pureed diet with nectar thick liquids. Crush medications and give in applesauce. Incontinent at times. Saline lock intact. Follow up: Will have a modified barium swallow tomorrow.
--- NOTE | 2017-03-18 03:07 | NUR ---
Significant Event: tylenol 650 mg given at 2058 for c/o pain to l) shoulder. S1xysby extremity flaccid. l) leg weakness. numbness to l) leg, n/t to l) arm. able to write on paper to make needs known. speech garbled/aphasic. refused to eat purrerd diet last samir. took bites of pudding. meds gibethel crushed in apllesauce. to have modified barium swallo this am. has difficulty swallowing, takes nectar thickened liquids without problems. voided prior to bedtime, denies need to urinate at this time. Follow up:
[2017-03-18 06:04] LABS: BASOPHIL % 0.3 %; EOSINOPHIL # 0.2 K/uL (0.0-0.5); EOSINOPHIL % 2.5 %; HEMOGLOBIN 14.5 g/dL (11.0-16.0); IMMATURE GRANULOCYTE % 0.4 %; LYMPHOCYTE # 1.4 K/uL (0.8-4.0); MCH 27.1 pg (27.0-34.0); MCV 82.2 fl (83.0-98.0); MONOCYTE # 0.7 K/uL (0.0-1.0); MONOCYTE % 7.4 %; MPV 10.3 fl (9.4-12.4); NEUTROPHIL # (ANC) 7.3 K/uL (1.4-9.0); NEUTROPHIL % 75.4 %; NRBC % 0 /100WBC (0-0.00); RBC 5.35 M/uL (3.50-5.50); RDW-CV 14.4 % (11.9-14.6); WBC 9.7 K/uL (4.0-11.0)
[2017-03-18 06:05] LABS: PLATELET COUNT 262 K/uL (150-450)
[2017-03-18 06:21] LABS: ALBUMIN 3.5 gm/dL (3.5-5.0); ANION GAP 11.5 (10.0-19.0); CALCIUM 9.1 mg/dL (8.5-10.5); CREATININE 0.9 mg/dL (0.6-1.3); POTASSIUM 3.5 mMol/L (3.7-5.1); TOTAL BILIRUBIN 0.8 mg/dL (0.0-1.5); TOTAL PROTEIN 7.8 g/dL (6.0-8.4)
--- NOTE | 2017-03-18 09:45 | NUR ---
D: Therapeutic Recreation Initial Assessment on the 03/18/17. I: Patient seen for 2 units to begin initial evaluation. Pt has dx of CVA with L) side weakness. R: Patient's current living situation and status: house Home entrance steps: 3 Living with: Spouses name: # of children: 2 Driving: yes Ambulating: I Equipment: N/A Hand Dominance: Right [employer] strength: L) side affected Eye sight: glasses Reading ability: N/T Hearing: no problem Speech: Cognition: impaired Comprehension: poor Following directions: at times Initiating: no Eye contact: fair Affect: flat COMMUNITY INVOLVEMENT: work 40, visit family/friends, buddhist LEISURE INTERESTS: watch TV, read, fishing, garden, some yard work Patient is referred by medical staff for treatment and evaluation in the following areas: Community Skills, Functional Leisure Skills, Participation, Leisure Education/Behaviors, Family Education, Cognitive, Emotional. Information obtained: Interview, Chart Review, Observation, other. BARRIERS TO LEISURE: Social, Financial, Physical, Lifestyle (tobacco use of 2 packs per day some alcohol) Transportation, Language, Leisure Skills. Patient determined to be: APPROPRIATE FOR THERAPEUTIC RECREATION ASSESSMENT. TREATMENT WILL INCLUDE: Community living skills training Functional leisure development Physical skills development Cognitive skills development Social skills development Leisure education Emotional/behavioral adaptation Family education Community resources/packet TARGET EQUIPMENT/INFORMATION: Parking Permit Community Resources Energy conservation in community setting Van/Service/Taxi Scrip Adapted Leisure Equipment Stress management/Relaxation techniques Functional car transfers Leisure Education Behaviors: Attitude, Awareness, Participation. Patient functional skills level and potential: Guarded, pt demonstrates poor mobility, communication difficulty and concerns for coping. Patient oriented ot TR services on Rehab unit. Pt/family provided input into goals setting and plan of care. Pt unable to identify at this time. P: Target date set with personal goals established. Will continue with POC focusing on pt/family training and education. For additional information please see Nursing Data Base, PT, OT, CM, ST, initial assessments to [facility] and Interdisciplinary Assessments.
--- NOTE | 2017-03-18 11:18 | NUR ---
A - PT TRANSFERRED TO [facility] YESTERDAY. K+ 3.5, GLU 83, BUN/SUPERVISOR SELF SERVICE STORE 16/0.9, PRE-ALB 23.0. DIET: PUREE W/ NECTAR LIQUIDS, INTAKE BITES TO 50%. OFFERED MIGHTY SHAKES AT B/D AND MAGIC CUP AT LUNCH. REFUSED MEAL LAST NOC. MBS TODAY. WT 126# WHEN ADMITTED TO [facility]; WAS 134# ON ACUTE CARE. REWEIGHT REQUESTED. EST NEEDS: 5224-9470 KCALS, 68-87 GM PROTEIN, 1 ML/KCAL FLUIDS. D - AT RISK W/ INADEQUATE ORAL INTAKE R/T DECREASED APPETITE AND DIFFICULTY SWALLOWING AEB INTAKE RECORD. I - GOAL: 50% OR BETTER INTAKE. M/E - 1) WILL CONT TO MONITOR INTAKE AND WT. MAY NEED EN TO SUPPLEMENT PO. 2) IF PT FAILS MBS, WILL REC TF. 3) F/U IN 1-2 DAYS.
--- NOTE | 2017-03-18 15:58 | NUR ---
Significant Event: Patient alert but aphasic. Hard to communicate but will write things on paper if unable to communicate his needs verbally. Modified barium swallow done and diet advanced to soft with regular thin liqids. He needs 1:1 supervision with meals as he pockets food on the left. Needs oral cares after each meal and to have meds crushed. 2 assist pivot transfer. Follow up:
--- NOTE | 2017-03-19 04:05 | NUR ---
Significant Event: Patient is alert and aphasic. VSS. Communication is difficult has trouble finding words also has a language barrier. Is able to communicate by writing on paper. Left arm is flaccid, left leg is also weak. Wears a sling on his left arm when up. Is a 2 assist pivot transfer. Diet was changed to a soft diet with regular fluids. 1:1 supervision with meals and oral cares after eating. Takes meds crushed with applesauce. Has voided per urinal at bedside, continent all night. Follow up:
--- NOTE | 2017-03-19 15:08 | NUR ---
Significant Event:Pt alert, aphasic, limited words for Portuguese, can write message if needed. On soft diet with regular thin liquids, needs 1:1 supervision with meals as he pockets food on the left. Oral cares to be done after meals. Crush meds give with sml amt of applesauce, pt may not take the second bite. Takes much encouragement to take liquid meds. 2 assist pivot transfer. Left arm is flaccid, left leg weak. Voids per urinal @ bedside. Pt has been pleasant and cooperative with plan of care. Follow up:pain control, 1:1 meals, watch pocket in left side of mouth. Crush meds.
--- NOTE | 2017-03-20 04:29 | NUR ---
Significant Event: Patient is alert and mostly oriented. Has aphasia and Russian is not his [place] language. Hard to tell if he really understands what you are saying. Can communicate by writing on a table. Has denied pain or discomfort. Up 2 assist pivot transfers. Left arm flaccid wears a sling when up, can lift his left leg up when he is in bed. Diet changed to soft diet and needs 1:1 supervision while eating, regular liquids no straw. Oral cares after each meal. Takes meds crushed with applesauce. Voids per vrinal in bed at night but did not void since before he went to bed. Woke patient to see if he needed to void and denied the need. Follow up:
--- NOTE | 2017-03-20 09:48 | NUR ---
Significant Event:Pt alert, reported he was hungrey this am, and he wanted hot coffee, he was able to express few items, and wrote some. ST worked with pt this am @ meal. Paper tablet in room for pt to write on. Denied pain. Oral cares to be done after meals, watch pt so does not pocket food left side of check. Likes pepsi. 2 assist pivot transfer, left side weak, L arm flacid/sling. Voids per urinal @ bedside. Pt has been pleasant and cooperative with plan of care. Follow up:Crush meds give in applesauce in sml amt as may not take a second bite. 1:1 @ meals, watch pocket food left check, clean mouth after meals. pain control.
--- NOTE | 2017-03-20 11:11 | NUR ---
[facility] Case Management Prefunctioning and Psycho-Social Initial Assessment for 03/17/17 and Case Conference Note for 03/17/17 D: Initial President Ceo & FounderEnterprise Architect Manager and Case Conference Note. I: Input from: patient, family, Dr. Mckeon, Venessa Grey MENTAL HEALTH PROFESSIONAL, and Venessa SOUZAW R: Reason for admission: CVA Admission Date to [facility]: 03/17/17 Admission Date to Hospital: 03/11/17 Prior level of functioning: patient was independent with adl's prior to CVA. Prior living situation: one story house with basement. Financial resources/expectations: Patient has no insurance. Resources used: Walk-in shower. Resources available: HHC, outpatient therapy, SNF, FDC, [facility], DME. Family support available: family Understands nature of health condition: yes Recognizes impact of health condition on lifestyle: yes Vocational/Educational: unknown Behavior/Emotional needs: Cues for safety. Monitor for signs and symptoms of depression and anxiety. Legal concerns: none. Discharge goal: home vs. placement. Assessment: Roshan is a 66 year old man who had been living with family in [place], [place]. Working on applying for assistance for patient. Team conference was held and plan is to d/c patient in approx. 3-4 weeks. Will follow and assist as needed. Orientation to the program and CM services completed with Roshan. Initial plan of care and estimated length of stay discussed, disclosure statement reviewed including patient assessment rights. P: Target date and individual goals established. Please see POC for details. For additional information please see Nursing Data Base, PT, OT, TR, ST, Initial assessments to [facility].
--- NOTE | 2017-03-20 12:22 | NUR ---
A-F/U WT AND MBS RESULTS REWEIGH ON 03/18 WAS 56.0 KG (W/C SCALE). PT'S WT DOWN FROM ACUTE FLOOR WT, WHICH WERE ALL BED SCALE WTS. MBS COMPLETED; DIET UPGRADED DIET RX: CARDIAC/SOFT DIET W/THIN LIQUIDS; THIS ADVANCED FROM PUREE/NECTAR THICK LIQUIDS. 1:1 SUPERVISION W/MEALS. PO INTAKE SINCE LAST F/U IS BITES-100%; AVG IS 41%. MIGHTY SHAKES BID AND MAGIC UP QD D-AT NUTRITION RISK W/INADEQUATE ORAL INTAKE R/T DIFF. SWALLOWING AEB NEED FOR ALTERED CONSISTENCY, 1:1 SUPERVISION, INTAKE RECORDS. I-1)D/C MIGHTY SHAKES BID 2)START ENSURE ENLIVE BID TO PROVIDE MORE KCALS/PROTEIN 3)ENCOURAGE INCREASED PO INTAKE M/E-GOAL: PO INTAKE >/=50% BY NEXT F/U 1)F/U PO INTAKE, SUPPLEMENT, WT, AND POC IN 3-5 DAYS 2)ASSIST NEEDED
--- NOTE | 2017-03-20 14:04 | NUR ---
D: TR progress note for 03/20/17. I: Pt seen for 2 units at 1302 for community integration skills building, functional transfers, and safety awareness. R: Pt seen for functional skills building working on attention to task, mobility, safety, functional transfers and community skills in anticipation for discharge back into community with family. Pt transferred supine > sit CGA > min assist, pivoted to/from bed CGA and transferred into WC CGA with cues for safety. Pt transferred sit > stand from WC CGA, pivoted to/from vehicle CGA with cues for hand placement and safety, transferred in/out of vehicle CGA with verbal cue for technique. Pt was SBA for BLE management with verbal and tactile cues to manage LLE and for positioning of self with seat surface adapted using trash bag to ease task. Pt tolerated ride but question if nauseous and max cues to open eye, able to provide directions for navigating to own home but pointing L)/R) and verbalizing home address number. P: Will continue to see to address goals and plan of care.
--- NOTE | 2017-03-21 02:53 | NUR ---
Significant Event: Patient is alert. Is aphasic with a language barier. Is able to make needs known by writing on clipboard. Takes meds crushed in applesauce. Up 1-2 assist pivot transfers. Left arm is flaccid and in sling when up. Left leg is weak but can lift it. Denies pain or discomfort. Voids per urinal at night. Little output the past 2 days, we need to push fluids he likes soda. Soft diet with regular liquids no straws. Oral cares after each meal. 1:1 supervision while eating likes to snack. Follow up:
--- NOTE | 2017-03-21 13:09 | NUR ---
Significant Event: PATIENT UP 1 ASSIST, PIVOT. L) SIDED WEAKNESS. L) ARM SLING. SPEAKS YAKUT BUT CAN WRITE SOME AZERI. HAD A VISITOR THIS MORNING. VITALS STABLE ON ROOM AIR. SHOWERED THIS AM. 1:1 FEEDINGS. THIN LIQUIDS, SOFT DIET, NO STRAWS. USES URINAL HIMSELF. MEDS CRUSHED IN APPLESAUCE. HI LO BED. Follow up:
--- NOTE | 2017-03-22 02:37 | NUR ---
Significant Event: denies c/o pain. l) arm flaccid. takes meds crushed with applesauce, likes to drink pepsi after meds. aphasic, speaks very little. follows commands. used urinal x1 by slef and was incontinent x2. rerpositions self in bed. bed alarm on and on hi-lo bed. do not leave alone when up. Follow up:
--- NOTE | 2017-03-22 15:38 | NUR ---
Significant Event: Up with 1 assit, pivot transfer. Left arm and leg flaccid. Droswy and sleeping a lot through this shift. Medication crushed in applesauce followed by pepsi in ice. Aphasic. Speaks Frisian, speaks a little Sinhala but can write out what he is trying to say better than he can speak it. Denies pain. Bladder scan at 1552 with 344 ml and has not urinated throughout the shift. Son was here to visit. 1:1 supervison with eatting. Bed alarm on Hi-Lo bed. Do not leave alone when up. Follow up:
--- NOTE | 2017-03-23 03:08 | NUR ---
Significant Event: a/o, forgetful. aphasic. speech not always clear. writes if unable to communicate. takes meds crushed in applesauce, followed by pepsi on ice. voided 400 ml per urinal, used by self. would like a tuna snadwich today. friends here to visit, was able to visit with them, they offered to bring him mauritian food. informed them that would be fine. did take some soup and part of sandwich cut into 1/4 " size pieces. needs supervision with food intake. left arm/hand flaccid. left leg weaker than right. has numbness to left arm. on hi lo bed. do not leave alone when up. Follow up:
[2017-03-23 06:27] LABS: ALBUMIN 3.4 gm/dL (3.5-5.0); ANION GAP 10.8 (10.0-19.0); CALCIUM 9.1 mg/dL (8.5-10.5); CREATININE 2.1 mg/dL (0.6-1.3); POTASSIUM 3.8 mMol/L (3.7-5.1); TOTAL BILIRUBIN 0.7 mg/dL (0.0-1.5); TOTAL PROTEIN 8.3 g/dL (6.0-8.4)
--- NOTE | 2017-03-23 13:32 | NUR ---
A-NUTRITION F/U NO NEW WT SINCE 03/18 03/23 LABS REVIEWED: BUN 65, JAILER/TRAINING OFFICER 2.1, ALB 3.4 MEDS: REMERON DIET RX: CARDIAC SOFT DIET. ENSURE ENLIVE BID AND MAGIC CUP QD. PT IS A 1:1 FEEDER. PO INTAKE REFUSALS-BITES FOR THE MOST PART W/OCC. 25%. EST NUTR NEEDS: 2733-9563 KCALS AND 68-87 GM PROTEIN D-AT NUTRITION RISK W/INADEQUATE ORAL INTAKE R/T ALTERED APPETITE AEB INTAKE RECORDS I-PT IS UNABLE TO MEET NUTR. NEEDS W/ORAL INTAKE. RECOMMEND PLACING A DOBHOFF AND START NOCTURNAL FEEDINGS OF JEVITY 1.5 W/A GOAL RATE OF 90 ML/HR X 12 HOURS, IF DESIRED BY PT. THIS WILL PROVIDE 1620 KCALS, 69 GM PROTEIN, AND 821 ML FREE WATER. 125 ML WATER FLUSHES X4. M/E-GOAL: 1)PO INTAKE >/=50% BY DISCHARGE. 2)IF DESIRED, START ENTERAL NUTRITION UNTIL PO INTAKE IMPROVES TO GOAL 1)F/U PO INTAKE, WT, LABS, AND POC IN 3-5 DAYS 2)ASSIST NEEDED
--- NOTE | 2017-03-23 19:17 | NUR ---
Significant Event:PATIENT WAS SLEEPY THIS AM AND VERY DIFFICULT TO GET OUT OF BED. FINALLY GOT. IS IMPULSIVE AND NEEDS WATCHED CLOSELY. WAS VERY RESISTENT TO ANY ACTIVITY. DOES NOT EAT WELL HE DOES NOT LIKE THE FOOD MUCH. FAMILY BROUGHT IN VEITNAMESE FOOD AND HE ATE WELL. DOES NOT DRINK MUCH EITHER. LIKES PEPSI. VSS. TRANSFERS WITH 1-2 ASSIST, GAIT BELT AND PIVOT TRANSFER. RESTED IN BED BETWEEN THERAPIES. HAS NOT VOIDED MUCH. BLADDER SCAN DONE AND ONLY 95 PRESENT AT THAT TIME. NO COMPLAINTS OF PAIN. NO OTHER COMPLAINTS. Follow up:
--- NOTE | 2017-03-24 02:30 | NUR ---
Significant Event:A/O but forgetful. 1-2 assist pivot transfer. Left leg weak and left arm flaccid. Alarms at all times for safety; impulsive.Voids per urinal. No void yet this shift. Soft diet with thin liquids. Friend brought in [employer] tonight. Oral cares after meals. Meds crushed in applesauce. Denies need for PRN medications. VSS on room air. Appears to understand simple Bermudian questions. Will write needs when communication not clear. Nnamdi sparrow removed, refused pneumatics. Bed alarm on. Call light in reach. Follow up:Do not leave alone when up. ALARMS. No DVT ppx.
--- NOTE | 2017-03-24 12:20 | NUR ---
D: TR progress note for 03/24/17. I: Pt seen for 2 units at 930 for community integration skills building, safety awareness, social communication, visual scanning and functional transfers. R: Pt seen for functional skills building working on scanning, attention to task, communication and safety awareness in community setting in anticipation for discharge back into community. Pt transferred supine > sit CGA, sit > stand from EOB CGA and pivoted to WC CGA with cues for safety. Education and information done on safety in community setting using flashcards to assist with identification of ways to provide solutions to possible problems for community re-entry, to increase communication and to help eliminate risks of falls. Pt unable to recall car transfer and ride to view own home on Thursday, able to identify and participate with min > mod cues with noted increase in agitation but did respond to questions asked. P: Will continue to see to address goals and plan of care.
--- NOTE | 2017-03-24 12:50 | NUR ---
Significant Event: Patient alert but tires easily. 1-2 assist pivot transfer. Left sided weakness. Wears sling to left arm when up. Crush medications in applesauce. Not eating or drinking much. New orders for IV fluid bolus x1. Peripheral IV started. Patient is aphasic. Can write what he needs on paper if needed. Follow up:
[2017-03-24 18:28] LABS: ANION GAP 11.7 (10.0-19.0); CALCIUM 9.2 mg/dL (8.5-10.5); CREATININE 1.8 mg/dL (0.6-1.3); POTASSIUM 3.7 mMol/L (3.7-5.1)
--- NOTE | 2017-03-25 01:18 | NUR ---
Significant Event:A/O, but some forgetfulness. Transfers 1-2 assist, pivot. Left leg impaired movement with some numbness. Left arm flaccid, sling on when up or elevate on pillows when in bed. Nicotene patch to left shoulder. Aphaisic with slurred words. First language Hong Konger. Understands Kiswahili quite well. Response to questions is slow allow extra time for response.Patient will write needs out on paper when trouble communicating. Requires supervision when eating and oral cares after each meal (pocketing foods).Now on regular consistency diet. Meds crushed in applesauce. Voids per urinal. No BM since the 21 of March, refused suppository. 2 Tabs Senna given. Lactated Ringers infusing to Saline lock in inner R) forearm @ 150ml/Hr. No complications. Denies pain this shift. Cooperative when allowed extra time and asked if he would like to ...get ready for bed, brush teeth, etc...Do not assume-ASK. Alarms at all times Impulsive. Call light in reach. Follow up:Alarms. Extra time for cares. Oral cares after meals.
[2017-03-25 05:54] LABS: ANION GAP 11.9 (10.0-19.0); CALCIUM 8.9 mg/dL (8.5-10.5); CREATININE 1.3 mg/dL (0.6-1.3); POTASSIUM 3.9 mMol/L (3.7-5.1)
--- NOTE | 2017-03-25 14:07 | NUR ---
Significant Event: PATIENT UP 1 ASSIST, PIVOT TRANSFER, WEAK LEFT SIDE. LEFT ARM FLACCID, SLING ON WHEN UP. DENIES PAIN. ORIENTED TO PERSON AND PLACE BUT FORGETFUL. LANGUAGE BARRIER, PATIENT SPEAKS BRAZILIAN BUT UNDERSTANDS ROMANSH FAIRLY WELL AND CAN WRITE SOME ROMANSH. LACTATED RINGERS INFUSING TO RIGHT FOREARM 150ML/HR FOR 1 LITER, STARTED THIS AFTERNOON. BMP TOMORROW. 1:1 SUPERVISION FOR FEEDING. NICOTINE PATCH TO RIGHT ARM. HI LO BED, ALARMS AT ALL TIMES. MEDS CRUSHED IN APPLESAUCE. BM ON 03/21, WILL NOT TAKE SUPPOSITORY. COLACE LIQUID GIVEN THIS AM. PSYCH CONSULT DONE TODAY, STARTED ON CELEXA FOR DEPRESSION. NEEDS ADDITIONAL HELP WITH ORAL CARES. Follow up:
--- NOTE | 2017-03-26 02:41 | NUR ---
Significant Event: a/o x3. takes meds crushed in applesauce. l) arm flaccid, l) leg weakness. does stand pivot with 1 assist. drools at times. uses urinal has voided 850 ml yellow urine. reciecved 1 liter fluid on days. to have labs this am. agitated that he cannot walk to bathroom and that he does not have enough privacy. difficult to understand at times and writes need to nurse. Follow up:
[2017-03-26 06:12] LABS: ANION GAP 12.1 (10.0-19.0); CALCIUM 9.1 mg/dL (8.5-10.5); CREATININE 1.4 mg/dL (0.6-1.3); POTASSIUM 4.1 mMol/L (3.7-5.1)
--- NOTE | 2017-03-26 15:16 | NUR ---
Significant Event:PATIENT ALERT. ONLY TOOK PART OF HIS MEDS THIS AM. REFUSED THE LAST TWO HE COMPLAINED OF BEING NAUSEATED. WE ARE TO TRY MEDS WHOLE WITH WATER TONIGHT AND SEE HOW HE DOES PER SPEECH. WILL MONITOR. HE WAS UPGRADED TO A REGULAR DIET SO WILL MONITOR. HAS DENIED PAIN. IS A 1-2 ASSIST, GAIT BELT PIVOT TRANSFER. SALINE LOCK IN RIGHT FOREARM INTACT. RESTS IN BED BETWEEN THERAPIES. ALARMS ON AT ALL TIMES. NO OTHER COMPLAINTS. DID REFUSE TO DO SOME THERAPIES THIS AM. Follow up:
--- NOTE | 2017-03-27 04:45 | NUR ---
Significant Event: PATIENT IS ALERT AND ORIENTATED. AMBULATES WITH A ONE ASSIST PIVIOT TRANSFER. MEDS GIVEN WHOLE THIS SHIFT SWALLOWED THEM WELL. LIKES PEPSI WITH LIQUID MEDS. DENIES PAIN OR DISCOMFORT. IV TO RIGHT FA INTACT AND FLUSHES WELL. REGULAR DIET STAFF IS TO BE IN ROOM WHILE PATIENT IS EATING. FAMILY VISITED LAST NIGHT Follow up:
--- NOTE | 2017-03-27 12:28 | NUR ---
Significant Event: Patient alert but aphasic. Is able to understand and write Nauruan. Able to write what he needs with pen and paper. Left sided weakness. Crush meds and give with applesauce. Saline lock. Likes Pepsi with ice. Follow up:
--- NOTE | 2017-03-27 12:59 | NUR ---
A-NUTRITION F/U NO BM SINCE 03/21; BOWEL MEDS BEING GIVEN. PSYCH CONSULT ON 03/25 CBW (03/23) 57.0 KG; WT EXACTLY THE SAME PREVIOUS 03/18 LABS: NA 137, K+ 4.1, GLU 96, BUN 39, WELFARE INVESTIGATOR 1.4 MEDS: MIRALAX, SENOKOT, CELEXA DIET RX: CARDIAC (UPGRADED FROM CARDIAC/SOFT). ENSURE ENLIVE BID AND MAGIC CUP QD. PO INTAKE HAS IMPROVED SINCE LAST F/U TO REF-100%; AVG IS 48%. PT'S FAMILY BRINGING IN FOOD AT TIMES. EST NUTR NEEDS: 9102-2250 KCALS AND 68-81 GM PROTEIN D-AT NUTRITION RISK W/INADEQUATE ORAL INTAKE R/T ALTERED APPETITE AEB INTAKE RECORDS. I-1)RECOMMEND LIBERALIZING DIET FROM CARDIAC TO REGULAR TO ENCOURAGE INCREASED PO INTAKE 2)CONTINUE W/CURRENT SUPPLEMENTS; ENCOURAGE INTAKE M/E-GOAL: PO INTAKE >/=505 BY NEXT F/U 1)F/U PO INTAKE, SUPPLEMENT, WT, AND POC IN 4-6 DAYS 2)ASSIST NEEDED
--- NOTE | 2017-03-27 13:03 | NUR ---
CONSIDER LIBERALIZING DIET FROM CARDIAC TO REGULAR.
--- NOTE | 2017-03-27 13:49 | NUR ---
D: Clerk Secretary Team Conference Follow up for 03/24/17 I: Input from patient/family R: Met with: patient, family, Venessa Carroll MATHEMATICS IMPROVEMENT TEACHER Discussed rehab plan, patient progress, discharge plan and estimated length of stay of d/c planned in approx. 2-3 weeks. Patient/Family Preference: patient is in agreement with this plan. Anticipated discharge disposition: team recommends d/c in approx. 2-3 weeks. Education completed: Education was completed with patient regarding length of stay, progress in therapy and d/c plan. Assessment/Recommendation: Team recommends d/c in approx. 2-3 weeks. P: Case Coordination: Visited with patient's son Bharat. He thinks that his father does have a social security card and possibly medicare. Bharat is currently in law school in [place]. Bharat's younger sister is 12 years old. Patient is and just has the two children. Bharat said that he would look for items this weekend. Explained to Bharat that patient will require 24 hour care post discharge. He states that they will have to look at a senior care facility. Will follow and assist as needed.
--- NOTE | 2017-03-27 13:55 | NUR ---
D: TR progress note for 03/27/17. I: Pt seen for 2 units at 902 for community integration skills building, functional transfers, and safety awareness. R: Pt seen for functional skills building working on mobility, safety, functional transfers and community skills in anticipation for discharge back into community with family. Pt's friend present for session, observed pt but no hands on assist. Pt transferred sit > stand from WC CGA, pivoted to/from vehicle CGA with max cues to slow pace and for safety, transferred in/out of vehicle CGA with cues for hand placement. Pt was SBA for BLE management and positioning of self with seat surface adapted using trash bag to ease task. Pt tolerated ride with no C/o pain, discomfort or problems with nausea, independent with providing home address but cues for scanning L). P: Will continue to see to address goals and plan of care.
--- NOTE | 2017-03-28 04:29 | NUR ---
Alert and oriented. Cooperative with cares this shift. Is one assist pivot transfer. Takes meds crushed in applesauce. Regular diet with 1:1 supervision while eating. Denies pain. Slept well
--- NOTE | 2017-03-28 14:28 | NUR ---
Significant Event: Patient alert. He is aphasic. He is able to understand and write down with pen and paper anything he needs to communicate. Crush medications. Saline lock intact. 1:1 supervision with meals. Needs to be in dining room. Follow up:
--- NOTE | 2017-03-29 03:45 | NUR ---
Significant Event:Went to bed right after dinner meal, visitor in briefly at meal time. Has not voided yet tonight. Left arm/hand flaccid, states numbness. Moves left foot/leg some. Saline lock to rt inner forearm, flushes but no blood return. Denies pain. Watched ballgame on tv. Gave one tab of Senna with hs meds. Sling to left arm with transfers. Follow up:Crush meds in applesauce. 1:1 with meals.
--- NOTE | 2017-03-29 15:46 | NUR ---
Significant Event: Patient alert. Very aphasic. Able to communicate by writing down what he needs. Understands what you tell him. Walked to dining room for meals with 1 assist and cane. Wears sling to left arm with transfers and ambulation. 1:1 supervision with meals. Follow up:
--- NOTE | 2017-03-30 03:58 | NUR ---
Significant Event: Had a few visitors last evening for short duration. Saline lock intact to rt forearm. No void, po intake 270 ml. BM yest on day shift. Took meds whole with applesauce at hs, later c/o heartburn/nausea and requested tylenol...given at 2106 with sprite and crackers. Pt went to sleep and later stated he felt better. Has c/o being hot, remains afebrile. Follow up:Monitor temp prn. Check with therapists to see if meds can be given whole--he dislikes the meds due to the taste of them crushed and in applesauce.Monitor voidings.
[2017-03-30 05:44] LABS: ALBUMIN 3.2 gm/dL (3.5-5.0); ANION GAP 11.7 (10.0-19.0); CALCIUM 9.2 mg/dL (8.5-10.5); CREATININE 1.4 mg/dL (0.6-1.3); POTASSIUM 3.7 mMol/L (3.7-5.1); TOTAL PROTEIN 8.4 g/dL (6.0-8.4)
[2017-03-30 05:51] LABS: TOTAL BILIRUBIN 0.4 mg/dL (0.0-1.5)
--- NOTE | 2017-03-30 11:10 | NUR ---
Significant Event: Patient alert but aphasic. Can communicate with writing with pen and paper if he is unable to verbally tell you. Saline lock intact. Left sided weakness. Left arm is flaccid. Wears sling to left arm with transfers and ambulation. 1 assist with cane. Takes medications whole with water. Follow up:
--- NOTE | 2017-03-31 03:32 | NUR ---
Significant Event: alert oriented x3, speech garbled. has flat affect. left arm flaccid, moves left leg with difficulty. denied need to get up to bathroom, refused oral cares. gets up with 1 asssit and cane. on hi lo bed, bed alarm on. tired. takes meds whole with water. Follow up:
--- NOTE | 2017-03-31 08:25 | NUR ---
A - NUTRITION F/U. CURRENT WT 120# IS DOWN 6# SINCE ADMIT TO [facility] ON 03/17. PT IS ALERT, APHASIC. /7 NA+ 134, GLU 94, BUN/GAS WELDER 49/1.4, ALB 3.2, PRE-ALB 24.0. DIET: CARDIAC W/ ENSURE BID AND MAGIC CUP QD. INTAKE USUALLY REFUSED TO BITES. 1:1 SUPERVISION AT MEALS. EST NEEDS: [id number] KCALS, 68-81 GM PROTEIN, 1 ML/KCAL FLUIDS. D - AT RISK W/ UNINTENDED WT LOSS R/T INADEQUATE ENERGY & PROTEIN INTAKE AEB RECENT WT LOSS. I - GOAL: ARREST WT LOSS. M/E - 1) PLEASE CHANGE DIET TO REGULAR. 2) IF PT WOULD CONSENT, REC TF VIA DOBHOFF W/ JEVITY 1.5 TO RUN AT 90 ML/HR X 12 HRS AT NOC = 1620 KCALS, 68 GM PROTEIN, 821 ML FREE H20. FLUSH W/ 125 ML H20 Q 6 HRS. 3) WILL CONT TO MONITOR AND F/U IN 2-4 DAYS.
--- NOTE | 2017-03-31 12:27 | NUR ---
D: TR progress note for 03/31/17. I: Pt seen for 2 units at 1000 for leisure education/participation, fine motor skills, visual scanning and mobility. R: Pt seen for functional skills building working on fine motor skills, visual scanning, coping skills and mobility to increase independence in all areas. Pt transferred supine > sit CGA, sit > stand from EOB CGA and pivoted to WC CGA with cues for safety due to rate of speed. Pt worked on motor skills and scanning doing leisure task working on computer. Pt shown websites with 520 sites for easy access to increase leisure independence. Pt able to operate mouse without difficulty using RUE with education done on ways ease task using arrows. Pt was independent with typing using one-handed technique but extra time allotted along with cues for scanning L). Discussed use of leisure to promote recovery and for coping with pt needing continuous cues to verbalize comments. P: Will continue to see to address goals and plan of care.
--- NOTE | 2017-03-31 13:10 | NUR ---
Significant Event: PATIENT UP 1 ASSIST, CANE, GAIT BELT. HAS BEEN AMBULATING VERY WELL. ALERT AND ORIENTED X3. FEEDS SELF, NO LONGER 1:1 FEEDING BUT SHOULD BE UP IN CHAIR. FAMILY BROUGHT FOOD TODAY SO PATIENT DID NOT EAT DURING SCHEDULED MEALS. SPEAKS VINCENTIAN BUT CAN COMMUNICATE WELL WITH STAFF THROUGH STATELESS SPOKEN/WRITTEN. PATIENT DENIES PAIN. VITALS STABLE ON ROOM AIR. MEDS WHOLE WITH WATER. CONTINENT OF BOWEL AND BLADDER. BM TODAY. Follow up:
--- NOTE | 2017-04-01 03:04 | NUR ---
Significant Event: alert, oriented to person and time. speech garbled, but able to communicate needs. refused oral cares x3. left upper extremity flaccid, left left leg weaker. sl to rt forearm. denies pain. on hi low bed. takes meds whole with water. Follow up:
--- NOTE | 2017-04-01 16:07 | NUR ---
Significant Event:PATIENT ALERT AND ORIENTED. VSS. TRANSFERS WITH 1 ASSIST, GAIT BELT AND CANE. IS UNSTEADY WITH TRANSFERS. BED ALARM ON AT ALL TIMES. FAMILY/FRIENDS BRING IN FOOD AT MEALS BUT DOES EAT SOME OF OUR FOOD TOO. DENIES PAIN. EATS MEALS IN DINING ROOM. RESTS IN BED WHEN NOT IN THERAPY. NO OTHER COMPLAINTS. Follow up:
--- NOTE | 2017-04-02 02:41 | NUR ---
Significant Event: Pt alert, mummbled speech. family up to see patient last night and assisted with feeding him dinner. L side week. pt took pills whole with water. encourage mouth cares, pt reluctant at times. needs encouragement to void. VSS. RA. bed alarm on at all times. slept most of shift. IV SL in right forarm. sling to left side while up. Follow up:
--- NOTE | 2017-04-02 09:01 | NUR ---
A-NUTRITION F/U NO CBW OR LABS SINCE LAST F/U NO LONGER 1:1 FEEDINGS. PT'S FAMILY AND FRIENDS ARE BRINGING IN FOOD AT MEALS. PT IS EATING SOME HOSPITAL FOOD ALSO. DIET LIBERLIZED. DIET RX: REGULAR W/ENSURE BID AND MAGIC CUP QD. PT DID TAKE 75-100% OF ENSURE ENLIVE AT [facility] AND DINNER YESTERDAY. PO INTAKE HAS BEEN REF-25%. D-AT NUTRITION RISK W/UNINTENDED WT LOSS R/T INADEQUATE ORAL INTAKE AEB WT LOSS, INTAKE RECORDS. I-CONTINUE W/CURRENT NUTRITION SUPPLEMENTS M/E-GOAL: NO FUTHER WT LOSS 1)F/U PO INTAKE, WT, LABS, AND POC IN 4-5 DAYS 2)ASSIST NEEDED
--- NOTE | 2017-04-02 14:05 | NUR ---
D: TR progress note for 04/02/17. I: Pt seen for 2 units at 1250 for community integration skills building, functional transfers, and safety awareness. R: Pt seen for functional skills building working on mobility, safety, functional transfers and community skills to increase independence with community skills in anticipation for discharge back into community. Pt transferred sit > stand from CGA, ambulated to/from vehicle CGA with SPC and cues to slow pace, transferred in/out of vehicle CGA with cues for hand placement and safety due to continued impulsive behavior. Pt was SBA for BLE management and positioning of self with seat surface adapted using trash bag to ease task. Pt tolerated ride with no C/o pain, discomfort or problems with nausea, cues for scanning L) continued but slight decrease on cues noted. P: Will continue to see to address goals and plan of care.
--- NOTE | 2017-04-02 15:17 | NUR ---
Significant Event:PATIENT ALERT AND ORIENTED. VSS. TRANSFERS WITH 1 ASSIST, GAIT BELT AND CANE. WEARS SLING ON LEFT ARM WHEN UP. HAS DENIED PAIN THIS SHIFT. REFUSES TO EAT LUNCH. WILL NOT DO ORAL CARES FOR STAFF MOST OF THE TIME BUT DID DO ORAL CARES WITH SPEECH. MARLON REPORTED THAT HE HAD SIGNIFICANT BLEEDING GUMS WHEN DOING THE CARES. WILL MONITOR. NO OTHER COMPLAINTS. Follow up:
--- NOTE | 2017-04-03 04:01 | NUR ---
Significant Event: A&Ox3, mumbled speech and aphasic at times. Patient writes out needs with pen and paper. Left arm flacid, sling on when up. 1PA with cane/GB to bathroom. VSS on room air. Family came and assisted patient with supper. Denies needs. Refuses cares. No void this shift, when asked if he needs to use the bathroom, patient replys, "no", "later", and "go away". Rested well this shift. BMP lab to be drawn this AM. IV in right hand SL with no complications. Takes meds whole with water. Follow up:
[2017-04-03 12:56] LABS: ANION GAP 14.2 (10.0-19.0); CALCIUM 9.3 mg/dL (8.5-10.5); CREATININE 1.5 mg/dL (0.6-1.3)
[2017-04-03 12:58] LABS: POTASSIUM 4.2 mMol/L (3.7-5.1)
--- NOTE | 2017-04-03 14:58 | NUR ---
Significant Event: Alert and oriented x 3. Up with 1A Cane and gait belt. Denies pain. Sling to left arm when up. L) arm flaccid. Mumbled speech. Aphasic. Can communicated with pen and paper. Refuses cares. Refused lunch. IV right hand SL. Meds whole with water. Follow up:
--- NOTE | 2017-04-04 03:12 | NUR ---
Significant Event: Patient alert and oriented can be forgetful. Is aphasic and mumbles at times. Is able to write on paper to make needs known if unable to find the right words. Left side weakness left arm flaccid wears a sling for transfers. Left leg is weak, up one assist with GB/Cane. Has been refusing cares, asking when he is going home. Refuses meals at times. Saline lock to right FA. Refused his shower last night was asked by RN and aide. Stated in morning. DSenies pain or discomfort. Takes meds whole with water. Follow up: Phone is missing keep an eye out.
--- NOTE | 2017-04-04 15:54 | NUR ---
Significant Event:PATIENT ALERT AND ORIENTED BUT IS FORGETFUL. VSS. TRANSFERS WITH 1 ASSIST, GAIT BELT AND CANE. SLEPT IN THIS AM. HAS BEEN IN A FAIRLY GOOD MOOD TODAY. REFUSED CARES. BED WAS CHANGED WHEN HE WAS UP WITH THERAPY HE HAD SPILLED HIS LEMONADE AT THE FOOT OF THE BED. HAS DENIED PAIN ALL SHIFT. NO OTHER COMPLAINTS. Follow up:
--- NOTE | 2017-04-05 03:53 | NUR ---
Significant Event: Patient alert and oriented but forgetful, VSS. Up one assist with GB/Cane. Refuses HS cares and still refuses his shower does not want it at night. Denies pain or discomfort. Took some MOM last night last BM was on the . Thursday night nursing assess his strength and movement to his left hand/arm was unable to move independently. Was happy to show me last night he was able to lift his arm partially and move his hand. Still looking or his phone. Saline lock remains in his right FA. Follow up:
--- NOTE | 2017-04-05 16:29 | NUR ---
Significant Event:PAITENT ALERT AND ORIENTED THIS SHIFT. VSS. TRANSFER WITH 1 ASSIST, GAIT BELT AND CANE. HAS DENIED PAIN ALL SHIFT. RESTS IN BED. REFUSED TO WALK WITH THERAPY TODAY BECAUSE IT WAS THURSDAY. HAS REPOSITIONED SELF IN BED THROUGHOUT THE DAY. SALINE LOCK IN RIGHT FOREARM. NO OTHER COMPLAINTS. Follow up:
--- NOTE | 2017-04-06 02:58 | NUR ---
Significant Event: Patient is alert and oriented can be forgetful. VSS. Denies pain or discomfort. Up one assist with GB/cane. Left arm is flaccid but has showed nursing he can raise it off the bed with much effort. Wears a sling when transfering, sling off but arm to be elevated at rest. Has been refusing personal cares. Refused his shower on Thursday an has continued all weekend. Appetite is not real good but does eat food his family brings in. Still has trouble with aphasia. Can write down needs if he can not communicate them. MOM give on Thursday with good results on Thursday. Urine output is poor. Likes to drink soda need to encourage water. Follow up: Labs this morning.
[2017-04-06 08:31] LABS: BASOPHIL % 0.3 %; EOSINOPHIL # 0.8 K/uL (0.0-0.5); EOSINOPHIL % 8.8 %; HEMATOCRIT 42.8 % (37.0-53.0); HEMOGLOBIN 14.4 g/dL (11.0-16.0); IMMATURE GRANULOCYTE # 0.1 K/uL (0.0-0.3); IMMATURE GRANULOCYTE % 0.9 %; LYMPHOCYTE % 11.5 %; MCHC 33.6 gm/dL (32.0-36.5); MCV 83.3 fl (83.0-98.0); MONOCYTE # 0.5 K/uL (0.0-1.0); MONOCYTE % 5.7 %; MPV 10.2 fl (9.4-12.4); NEUTROPHIL # (ANC) 6.6 K/uL (1.4-9.0); NEUTROPHIL % 72.8 %; NRBC % 0 /100WBC (0-0.00); PLATELET COUNT 269 K/uL (150-450); RBC 5.14 M/uL (3.50-5.50); RDW-CV 14.3 % (11.9-14.6); WBC 9.1 K/uL (4.0-11.0)
[2017-04-06 08:43] LABS: ALBUMIN 3.2 gm/dL (3.5-5.0); ANION GAP 11.7 (10.0-19.0); CALCIUM 9.2 mg/dL (8.5-10.5); CREATININE 1.4 mg/dL (0.6-1.3); POTASSIUM 3.7 mMol/L (3.7-5.1); TOTAL BILIRUBIN 0.4 mg/dL (0.0-1.5); TOTAL PROTEIN 8.4 g/dL (6.0-8.4)
--- NOTE | 2017-04-06 10:32 | NUR ---
A-NUTRITION F/U CBW (04/04)-54.1 KG (119#); WT LAST WEEK 120# LABS: NA 137, K+ 3.7, GLU 112, BUN 30, COMMERCIAL DRIVER 1.4, ALB 3.2, PREALB 28.0. PREALB LAST WEEK 24.0 DIET RX: REGULAR W/ENSURE ENLIVE BID AND MAGIC CUP QD. PO INTAKE HAS BEEN REF-100%; AVG IS 49%. THIS IS AN IMPROVEMENT FROM LAST F/U. PT DOES EAT FOOD THAT FAMILY BRINGS IN FOR HIM D-AT NUTRITION RISK W/INADEQUATE ORAL INTAKE R/T ALTERED APPETITE, CULTURAL FOOD DIFFERENCES AEB INTAKE RECORDS, CHART REVIEW. I-CONTINUE CURRENT SUPPLEMENTS M/E-GOAL: PO INTAKE >/=505 BY NEXT F/U 1)F/U PO INTAKE, WT, AND POC IN 3-5 DAYS 2)ASSIST NEEDED
--- NOTE | 2017-04-06 10:45 | NUR ---
D: Concession Supervisor Team Conference Follow up for 03/31/17 I: Input from patient/family R: Met with: patient, family, Venessa Carroll POND SAWYER Discussed rehab plan, patient progress, discharge plan and estimated length of stay of d/c planned soon. Patient/Family Preference: Patient is in agreement. Anticipated discharge disposition: unknown. Team does not feel patient can go home by himself due to left inattention. Education completed: Education was completed with patient regarding length of stay, progress in therapy and d/c plan. Assessment/Recommendation: Team recommends SNF placement. P: Case Coordination: Roshan is a 66 year old man from [place], [place] admitted after a stroke. He lives by himself. Working on d/c plan. Patient did give us his social security number and we were able to find Medicare number as well. Will follow.
--- NOTE | 2017-04-06 14:23 | NUR ---
Pt is alert and oriented to person, place is aspahagic, but does not always responed to questions appropirately, unsure if due to aspasgia or language barrier. . Pt is plesant with staff. Pt is a 1 assist with transfers. PT refused oral cares this shift. Pt refused to go to dining room for lunch because noone was out there at breakfast time. Pt's vital signs stable. Pt has denied pain this shift. Pt has worked with therapy.
--- NOTE | 2017-04-07 04:22 | NUR ---
Significant Event: PATIENT IS PRIMARILY YORUBA SPEAKING BUT DOES UNDERSTAND MONTSERRATIAN. HE IS ALERT. FLACID TO LEFT UPPER EXTREMITY. CAN LIFT LEFT LEG OFF OF BED AND WIGGLE TOES. DENIES ANY N/T. ON ROOM AIR. ALARMS ON AT ALL TIMES. PATIENT HAS BEEN COOPERATIVE THROUGHOUT NIGHT.DECREASED UOP WHICH IS AN ONGOING ISSUE. Follow up:
--- NOTE | 2017-04-07 15:01 | NUR ---
Significant Event:PATIENT ALERT AND ORIENTED THIS SHIFT. VSS. TRANSFERS WITH 1 ASSIST, GAIT BELT AND CANE. HAS DENIED PAIN. RESTS IN BED BETWEEN THERAPIES. WENT DOWN FOR A CT THIS AM WITHOUT CONTRAST TO R/O HEMORHAGIC CONVERSION TO BE ABLE TO BE STARTED ON ANTICOAGULANTS. HE IS SCHEDULED FOR A LEXISCAN TOMORROW AND WILL BE NPO AFTER MIDNIGHT TONIGHT. HE IS ALSO NOT TO HAVE ANY BETA BLOCKERS TONIGHT OR TOMORROW. NO OTHER COMPLAINTS. Follow up:
--- NOTE | 2017-04-07 16:14 | NUR ---
D: TR progress note for 04/07/17. I: Pt seen for 2 units 1000 for leisure education, coping strategies, fine motor skills, cognitive thinking and visual scanning. R: Pt seen for functional skills building working on leisure task for visual scanning, motor skills, cognitive thinking, and coping strategies to promote recovery and to increase independence with leisure activities. Pt started on new leisure task doing logic puzzles utilizing computer. Pt able to operate mouse without difficulty using RUE but needed mod > max cues for cognitive thinking to complete problem solving and strategzing along with visual scanning with noted preservation on task. P: Will continue to see to address goals and plan of care.
--- NOTE | 2017-04-08 02:35 | NUR ---
Significant Event: PATIENT IS ALERT AND ORIENTED. FORGETFUL AT TIMES. SLEPT WELL. ALARMS ON AT ALL TIMES. VSS. NPO FOR LEXISCAN TODAY. BETABLOCKER ON HOLD. IV TO RFA. ON ROOM AIR. Follow up:
--- NOTE | 2017-04-08 11:56 | NUR ---
D: TR progress note for 04/08/17. I: Pt was to be seen for 2 units at 1100 in group session. R: Pt not seen due to conflict with medical procedure. P: Will continue to see to address goals and plan of care.
--- NOTE | 2017-04-08 12:45 | NUR ---
Significant Event: Alert and oriented. Up with 1A cane and gait belt. Denies pain. Nausea this morning. Zofran given. Refused breakfast and lunch. Had a lexiscan this morning. Not to have any beta blockers today. IV SL to right forearm. Refused all morning meds. Follow up:
--- NOTE | 2017-04-09 03:07 | NUR ---
Significant Event:Patient is alert and oriented but forgetful. Up one assist with cane. No c/o of pain or discomfort. Lexiscan done yesterday and his beta talia have been restarted. Saline lock in his right FA was dc'd was leaking did not flush. Took meds whole with water. No c/o of nausea t/o the night. Has not voided yet this shift. Have encouraged liquids. Follow up: Push fluids.
--- NOTE | 2017-04-09 07:57 | NUR ---
PT refusing to get into w/c for breakfast.
--- NOTE | 2017-04-09 12:12 | NUR ---
D: TR progress note for 04/09/17. I: Pt seen for 2 units at 832 for community integration skills building, functional transfers, and safety awareness. R: Pt seen for functional skills building working on mobility, safety, functional transfers and community skills to increase independence with community skills in anticipation for discharge back into community. Pt's friend present for session, transferred into his van with education and training done. Pt transferred sit > stand from WC SBA, ambulated to/from vehicle SBA with SPC and cues to slow pace, transferred in/out of vehicle SBA. Pt was mod I for BLE management and positioning of self with education done on placement with SPC when riding in vehicle. P: Will continue to see to address goals and plan of care.
--- NOTE | 2017-04-09 14:02 | NUR ---
A-NUTRITION F/U CBW (04/07): 54.1 KG; NO CHANGE NO NEW LABS. NO C/O NAUSEA MEDS: ZOFRAN DIET RX: REGULAR W/ENSURE ENLIVE BID AND MAGIC CUP QD. PO INTAKE 25% (X1)- 100%; AVG IS 83%. NPO ON 04/08 FOR A LEXISCAN. VISITED W/PT RE: SUPPLEMENTS. PT DOES NOT LIKE THE ENSURE; DOES NOT WANT IT. PT DOES LIKE THE MAGIC CUP, BUT DECLINES INCREASING MAGIC CUP TO BID. WHEN ASKED IF HIS FAMILY IS STILL BRINGING IN FOOD, PT STATES EVERY NIGHT. D-AT NUTRITION RISK W/INADEQUATE ORAL INTAKE AT TIMES R/T ALTERED APPETITE, DISLIKE OF FOOD AEB INTAKE RECORDS. I-1)D/C ENSURE ENLIVE BID, PER PT REQUEST 2)CONTINUE W/MAGIC CUP QD AT LUNCH M/E-GOAL: PO INTAKE >/=75% FOR DURATION OF ADMIT 1)F/U PO INTAKE, WT, LABS, AND POC IN 4-6 DAYS 2)ASSIST NEEDED
--- NOTE | 2017-04-09 15:32 | NUR ---
Pt is alert and oriented. Pt has denied pain this shift. Pt did void in the urinal x 1 this shift. Pt refused to get out of bed to eat meals this shift. Pt has tolerated working with therapy. Pt has slept or watched TV this shift while not working with therapy. Pt voices no other needs or complaints this shift.
--- NOTE | 2017-04-10 03:36 | NUR ---
Significant Event: PATIENT ALERT AND ORIENTED BUT FORGETFUL. VSS. UP ONE ASSIST WITH GB/CANE. DENHIES PAIN OR DISCOMFORT. TAKES MEDS WHOLE WITH WATER. VOIDED X 2 TONIGHT. HAS A POOR APPETITE, EATS WELL WHEN FAMILY BRING IN FOOD. GOT UP TO THE BR VOIDED AND BRUSHED HIS TEETH. HE USUALLY REFUSES WHEN ASKED. Follow up: PUSH FLUIDS.
--- NOTE | 2017-04-10 11:14 | NUR ---
D: Brick Picker Team Conference Follow up for 04/07/17 I: Input from patient/family R: Met with: patient, family, Dr. Mckeon, Venessa Grey BUTCHER Discussed rehab plan, patient progress, discharge plan and estimated length of stay of d/c planned in approx. 10-14 days. Patient/Family Preference: Patient is in agreement with this plan. Anticipated discharge disposition: Discussed with patient that having someone to stay with him awhile would be recommended. Patient said, "no, I don't need." Patient also voiced that he was planning to drive soon. Dr. Mckeon explained that he did not want him driving right away. Education completed: Education was completed with patient regarding the care that we felt he needed at home. Patient voiced understanding, but states he does not need any help. Will follow. Assessment/Recommendation: Team recommends d/c in approx. 10-14 days. P: Case Coordination: Roshan was admitted after a stroke. He has good family support. Will follow and assist as needed.
--- NOTE | 2017-04-10 15:31 | NUR ---
Significant Event:PATIENT ALERT AND ORIENTED. VSS. TRANSFERS WITH 1 ASSIST, GAIT BELT AND CANE. HAS DENIED PAIN ALL SHIFT. RESTS IN BED OR RECLINER BETWEEN THERAPIES. IS ABLE TO LIFT LEFT ARM SOME NOW AND IS WORKING MORE WITH IT TO GET IT TO MOVE. NO OTHER COMPLAINTS. Follow up:
--- NOTE | 2017-04-11 03:17 | NUR ---
Significant Event:A/O. Transfer w/ 1 assist gait belt and cane. Needs to wear sling to left arm when transferring. Left arm flaccid, is able to lift it slightly. Some aphaisia noted. Primary language is Armenian. Rests in bed all shift, bed alarm on. Family brought in food. Patient does not like to do oral cares after eating. Denies pain. Reapproached x2. Bed alarm on. Call light in reach. Follow up:Transfers. Therapy.
--- NOTE | 2017-04-11 14:53 | NUR ---
Significant Event: PATIENT UP 1 ASSIST, CANE, GAIT BELT. COOPERATIVE WITH CARES. ALERT AND ORIENTED X3. SPEAKS EMIRATI PRIMARILY BUT HAS BEEN COMMUNICATING WELL IN GREEK. HAD VISITORS TODAY. FEEDS SELF WELL, MEDS WHOLE WITH WATER, NO ISSUES SWALLOWING. VITALS STABLE ON ROOM AIR. NEEDS ENCOURAGEMENT TO COMPLETE ORAL CARES. CONTINENT OF BOWEL AND BLADDER. Follow up:
--- NOTE | 2017-04-12 04:36 | NUR ---
Significant Event:A/O. Syriac heavily accented, showing a few signs of aphaisia. Transfers standby assist with gait belt, cane and sling on left arm. Ambulated in hallway from room to west hallway window w/ stand by assist. Stated "going home in maximum 1 week". meds whole with water. Appetite good ate 2/3 of meal served and family adryan in food. Changed clothes before bed. Oral cares and willing to wash face. Claimed feeling constipated, gave MOM. No results. Continent. Alarms for impulsivity. Call light in reach. Follow up:Discharge planning. Continue therapy. continue to monitor.
--- NOTE | 2017-04-12 15:41 | NUR ---
Significant Event: Patient up with standby assist. Wears sling to left arm PRN. Left arm has some slight movement. Left sided weakness. Aphasic. Dulcolox suppository and senna tablets given with small bowel movement results. Patient has slept on and off today. Follow up:
--- NOTE | 2017-04-13 04:30 | NUR ---
Significant Event:Alert and oriented. Aphaisic. Speaks fairly clearly. SBA transfers with cane. Sling to left arm when up. Nicotene patch to right shoulder. Denies pain. VSS on room air. BM this shift. Call light in reach. Needs to be mod I, getting up without assistance to bathroom before nursing can get therer. Pleasant. Follow up: Transfer status.
[2017-04-13 05:15] LABS: ALBUMIN 2.8 gm/dL (3.5-5.0); CALCIUM 8.8 mg/dL (8.5-10.5); TOTAL PROTEIN 7.5 g/dL (6.0-8.4)
[2017-04-13 05:25] LABS: TOTAL BILIRUBIN 0.2 mg/dL (0.0-1.5)
--- NOTE | 2017-04-13 13:17 | NUR ---
A-NUTRITION F/U CBW: 55.9 KG; WT UP 1.9 KG X 1 WEEK LABS: ALB 2.8, LFTs ELEVATED, PREALB 20.0. DIET RX: REGULAR WITH MAGIC CUP QD. PO INTAKE BITES-100%; AVG IS 42%. AVG PO INTAKE DOWN FROM PREVIOUS F/U. PT RECEIVING THE ONLY SUPPLEMENT HE WILL AGREE TO; DECLINED TO INCREASE FREQUENCY. D-AT NUTRITION RISK W/ INADEQUATE INTAKE R/T ALTERED APPETITE AEB INTAKE RECORDS. I-CONTINUE W/MAGIC CUP QD M-GOAL: PO INTAKE >/=50% BY DISMISSAL 1)F/U PO INTAKE, WT, AND POC IN 7 DAYS 2)ASSIST NEEDED
--- NOTE | 2017-04-13 14:20 | NUR ---
Significant Event: Pt denied pain. Pt brushed teeth after breakfast and patient kept saying "I do by myself". Staff reassured him that they were there for safety. Pt tried to put a clean shirt on and he got really frustrated and ended up throwing the shirt on the ground and getting into bed. Staff picked the shirt up and put it on the window ledge. The next time the patient was rounded on he had his shirt on. Pt has a nicotine patch on his L)upper back. Sling to L)upper extremity when transferring patient. Pt reports that his L)arm is numb. Pt went outside for a little while to view the eclipse with staff. Pt keeps having therapist place him in his chair with no alarms and then moves himself to the bed. Pt set the bed alarm off this morning when he got up to brush his teeth and had it shut off by the time nursing entered the room. Pt is steady on his feet, walked outside and back with a standby assist. Follow up:
--- NOTE | 2017-04-14 04:38 | NUR ---
Alert and oriented. Impulsive, as he gets up on his own. Therapy wants to trial him today with no alarms, as pt is frustrated that he has to have alarms on all the time. Up with standby assist and cane. Sling to left arm when up. Denies pain and slept through the night. To be showered this am by OT
--- NOTE | 2017-04-14 12:48 | NUR ---
Significant Event: Patient alert. Aphasic. 1 assist. Left arm has some movement. Wears sling to left arm PRN. Patient complains of bilateral calf pain today. No reddness or swelling noted. Bilateral doppler ordered and was negative. Lovenox started. Follow up:
--- NOTE | 2017-04-15 04:51 | NUR ---
Alert and oriented. Pleasant and cooperative with cares tonight. Repeatedly states it's good..."going home". Denies need for pain meds. Up with standyby assist. Shuts bed alarm off before getting up. Up in room with family without cane, doing hs cares. Plan is to d/c by the end of this week.
[2017-04-15 06:01] LABS: ANION GAP 10.7 (10.0-19.0); CALCIUM 8.9 mg/dL (8.5-10.5); CREATININE 0.9 mg/dL (0.6-1.3); POTASSIUM 3.7 mMol/L (3.7-5.1); TOTAL BILIRUBIN 0.3 mg/dL (0.0-1.5); TOTAL PROTEIN 7.8 g/dL (6.0-8.4)
--- NOTE | 2017-04-15 15:31 | NUR ---
Significant Event: Patient alert. Aphasic. Left sided weakness. Wears sling to left arm PRN. Follow up:
--- NOTE | 2017-04-16 02:35 | NUR ---
Significant Event:A/O. First language Guamanian. Understands sierra leonean well, speaks s[place] leone[place] on limited basis. Aphaisic. SBA with cane and sling to left arm. Left arm weak, takes a lot of focus to move it off the bed. No grasp. Left leg good ROM, denies numbness. Continent of bowel and bladder. Appetite good but, prefers Guamanian food friend brings in the evening. Nicotene patch to left arm. Denies pain. VSS stable on room air. Afebrile. Meds whole with water. Patient shuts bed alarm off, before staff can arrive. Follow up:Updgrade status to ad kate? Therapies.
--- NOTE | 2017-04-16 19:40 | NUR ---
Significant Event: UP IN ROOM BY SELF, REMAINDED NUMEROUS TIMES TO CALL FOR HELP, GETS AGGITATED WITH STAFF. LEFT ARM FLACID, WILL USE SLING AT TIMES. WANTING TO GO HOME THURSDAY... Follow up:
--- NOTE | 2017-04-17 02:51 | NUR ---
Significant Event:A/O X3. Kyrgyz is first language, understands most Japanese and can answer in Japanese most of the time. Left hand no grasp, is able to slowly raise arm off of the bed. Left foot moves well, some numbness at times. Ambulates around his room on his own with and without a can. Refused sling for left arm. VSS on room arm. Bandaid right thumb for small cut from shaving. Refuses all alarms, turns them off as soon as he gets up or directly after nursing leaves the room. He pushes buttons until he has the alarm off. States he is leaving soon. Today? Follow up:Alarm sounds as soon as it is turned on. Discharge
[2017-04-17 05:00] LABS: ALBUMIN 2.9 gm/dL (3.5-5.0); ALK PHOS 187 IU/L (33-138); ALT 140 IU/L (12-78); AST 62 IU/L (10-40); TOTAL PROTEIN 7.6 g/dL (6.0-8.4)
[2017-04-17 05:03] LABS: TOTAL BILIRUBIN 0.2 mg/dL (0.0-1.5)
--- NOTE | 2017-04-17 13:24 | NUR ---
Significant Event: Pt up in room SBA, pt does get self up on own and will shut off own alarm. Alarms inuse at all times. Pt denied pain. Family is coming around 1900 tonight, unsure yet if pt will discharge home with them. Left arm sling on when up, at times pt does not use appropriately. Follow up: activity, safety, possible discharge.
[2017-04-17] MEDS ORDERED: ASPIRIN (CHILDR81 MG PO (16:12)
[2017-04-17] MEDS ORDERED: NORVASC10 MG PO (16:12)
[2017-04-17] MEDS ORDERED: COREG6.25 MG PO (16:14)
[2017-04-17] MEDS ORDERED: LIPITOR40 MG PO (16:14)
[2017-04-17] MEDS ORDERED: CELEXA20 MG PO (16:15)
[2017-04-17] MEDS ORDERED: COLACE100 MG PO (16:15)
[2017-04-17] MEDS ORDERED: PLAVIX75 MG PO (16:15)
[2017-04-17] MEDS ORDERED: PROTONIX40 MG PO (16:18)
[2017-04-17] MEDS ORDERED: NICODERM / HABIT7 MG TRANS (16:19)
[2017-04-17] MEDS ORDERED: MILK OF MA2400 MG/10 PO (16:20)
--- NOTE | 2017-04-17 20:50 | NUR ---
Family (son, dtr, and ex-) arrive and talk with nurse regarding discharge. Unable to plan for discharge as no home to go to and state another option needs to be in place. Son is in college in [place], young dtr of 11 lives with her mother/ex- of pt. Both state pt has friends in town but none that he can stay with to live. Continued discussion with family at pts' bedside stressing safety and being able to live in a place that was home to him. Pt upset and debates conversation in [facility] with family, who then shares his conversation with nurse. (2129) Pt was sitting at bedside with dtr beside him and son in room, ex- was in carter outside pts' room when dtr got up and walked out to her mother crying and emotional stating "He said he was going to jump out the window". This nurse enters room and pt had gotten up and walked into br to sit on toilet looking at floor. Nurse asked "Is that what you really want to do Roshan is to jump out the window?" No answer from pt. Nurse then states, "You really have upset your dtr with what you have said and she is in the hallway crying. Things will get worked out regarding your discharge, just not tonight." Again pt doesn't respond to nurse; however he does stand up and walks into the middle of his room and beckons dtr to come back into his room with his hand and verbally. Ex- walks back into room with dtr and verbally speaks directly to pt regarding the words and treatment he has voiced to their dtr. Shortly thereafter dtr and pt are sitting on bedside edge with pt consoling dtr. Nurse steps into hallway with ex- and she shares that the male friend that visited earlier this evening had also told her that pt had expressed "wanting a cord to do something to himself". Pts' friend had not shared this with the nurse, but ex- says that friend doesn't speak any Albanian, but had shared it with her prior to her coming tonight. (2134) [employer] Supervisor Kaci Huerta RN notified of situation. (2136) Dr Mckeon notified of pts' verbalization for hurting self x 2 this evening, states to call Phosphatic Fertilizer Supervisor Venessa Grey and find out more on the events around the discharge plans. (2139) Called Venessa Grey x 2 and left voice mail message, also called house phone but line was busy x 2. (2144) Pt more settled, still upset regarding cancelled discharge and what the outcome will be and when. Informed him and family members that Phosphatic Fertilizer Supervisor would be re-visiting the issue on Thursday and searching out options. Shared with family members that staff would be observing pt through the night hours and updating staff/dr in the a.m. Family members leave for the night. (2199) Pt sleeping. (2214) Staff moving items from pts room and placing them outside his room in the hallway to ensure safety. (2229) Discussing with housekeeper/laundry assistant Kaci Huerta RN to place staff at bedside thru night as a 1:1 situation due to suicidal threats that were verbalized earlier. (231) CORN DETASSELER MACHINE OPERATOR Staff Hawa Donald in room as 1:1 observation. Pt remains asleep, bed exit alarm on with side rails up x 2.
--- NOTE | 2017-04-18 04:06 | NUR ---
Significant Event: Discharge was cancelled for Fri samir due to pt not having no home to be discharged to. Son, dtr, and ex- on unit last evening and shared issues with discharge and where he is to go as son is at college and only friends here in town. Pt upset, speaks little to nurse but when family arrives he was displaying more anger and then spoke out to dtr that he wants to jump from his window. Ex- became more involved in diffusing issue of discharge and his outburst in front of his dtr. Ex- also stated a male friend had called her and shared that pt had "wanted a cord to do something to himself". Contacted fuel house attendant, called Mike, he asked to have Venessa re-called again and then call him back. Unable to reach Venessa left message. Decided by nursing to place him on 1:1 supervision due to the two statements he shared over a 2 hr time frame in the evening. Pts' family left hospital around 2144--pt was shortly after 2229. Belongings, equipment and trash bags removed from room. Does continue to have call light cord in room but is near to the staff sitting with him. Meal tray ordered with plastic utensils. Situation will need to be re-evaluted for 1:1 observation to be changed to 15 min checks vs continued 1:1 Follow up:Prior discharge cancelled--will be re-evaluated by Venessa. !:1 observation to be continued or changed to 15 min checks.
--- NOTE | 2017-04-18 16:32 | NUR ---
Significant Event: Pt remained on closer obs. t/o day, Pt did not make any more comments r/t suicidal thoughts t/o day. Pt did not verbalize much with staff at beginning of shift. Nurse addressed comments that were made by pt last noc, pt did not interact or verbalize response. Pt angry at times t/o day r/t inability reach family on phone, or that they have not stopped up today. Pt refused am meds and would not interact or engage with nurse. Nurse offered scheduled meds often t/o day, pt continued to refuse them. Nurse reinforced importance of meds and risks associated with not taking them, but pt continues to refuse. Dr Diaz made aware of this in the am. Alarms on pt t/o day, pt continued to get up on own and often turns alarms off on own. Left arm remains weak, pt refused left arm sling t/o day. Pt refused breakfast this am, and minimal in for lunch. Follow up: safety! discharge plan?
--- NOTE | 2017-04-19 03:26 | NUR ---
Significant Event:Ex- called and talked with pt at start of shift. Pt did speak with this nurse in simple responses and did ask a few questions. Minimal eye contact but when asking about depression/suicidal eval pt nodded x 1 and then refused to talk. Was willing to take meds from earlier in the day--plavix, b/p meds and his hs colace. 172/90 prior to meds. Pt has been quiet and did sleep thru night hours, making rounds on pt every 30-60 min. Bed alarm on. Flaccid left hand/fingers, able to move arm with lifting of shoulder and upper arm, slight edema in fingers. Moves lower left leg/foot fairly well, has cane in room to use when up. Oral intake, both food/fluids are poor. Has only been up to br x 1. Follow up: Monitor pt--be aware of depression/suicidal activity. Monitor b/p
--- NOTE | 2017-04-19 15:46 | NUR ---
Significant Event: Patient alert. Patient is aphasic. Left sided weakness. Patient very quiet today. Does not give nurse eye contact. Does not engage with nurse or in conversation. Had a few visitors today. Helped patient call his daughter on the phone. Follow up:
--- NOTE | 2017-04-20 04:15 | NUR ---
Significant Event:Weight 53.9 kg which is down 2 kg from 04/14. Appetite poor, minimal oral intake. Has been up to br x 1, denies difficulty voiding. Last bm on amt. Up in room with SBA/or on his own, doesn't wear arm sling in room. Denies pain, no suicidal thoughts--seems depressed. Was upset when had lost his eyeglasses in the room, did locate them in wadded up bed linens. Pt had stood up from bed while looking within the bed linens and sat in recliner so staff could change the bed linens. 151/74. Minimal eye contact and few words shared, except when glasses were "lost". No family or friends visited or called via phone. Follow up:Safety, monitor intake/output, offer food items. Encourage meds to be taken.
[2017-04-20 06:26] LABS: ALK PHOS 161 IU/L (33-138); ALT 94 IU/L (12-78); ANION GAP 8.3 (10.0-19.0); AST 42 IU/L (10-40); BLOOD UREA NITROGEN 15 mg/dL (6-24); CALCIUM 8.9 mg/dL (8.5-10.5); CHLORIDE 112 mMol/L (96-110); CO2 27 mMol/L (22-32); CREATININE 0.8 mg/dL (0.6-1.3); POTASSIUM 3.3 mMol/L (3.7-5.1); SODIUM 144 mMol/L (135-145); TOTAL PROTEIN 7.7 g/dL (6.0-8.4)
[2017-04-20 06:29] LABS: TOTAL BILIRUBIN 0.3 mg/dL (0.0-1.5)
--- NOTE | 2017-04-20 09:02 | NUR ---
A-NUTRITION F/U BEING MONITORED FOR DEPRESSION AND VERBALIZATION OF SUICIDE CBW: 53.9 KG; WT IS DOWN 2.0 KG X 1 WEEK LABS: NA 144, K+ 3.3, GLU 92, BUN 15, COGNOS REPORT DEVELOPER 0.8, ALB 3.0, PREALB 25.0 MEDS:K-TAB DIET RX: PLASTIC ONLY/NO SILVERWARE. MAGIC CUP QD; PT DECLINES ALL OTHER SUPPLEMENTS. PO INTAKE IS POOR; REF-50% SINCE LAST F/U. D-PT AT NUTRITION RISK W/INADEQUATE ORAL INTAKE R/T ALTERED MENTAL STATUS AEB INTAKE RECORDS, WT LOSS, AND CHART REVIEW I-PT IS UNABLE TO BE MEET NUTR. NEEDS W/CURRENT PO INTAKE. RECOMMEND DOBHOFF PLACEMENT AND ENTERAL NUTRITION BE STARTED; CONSULT IF DESIRED. M/E-GOAL: PO INTAKE >/=50% BY DISCHARTE 1)F/U PO INTAKE, WT, AND POC IN 4-5 DAYS 2)ASSIST NEEDED
--- NOTE | 2017-04-20 10:43 | NUR ---
D: Commissions Coordinator Team Conference Follow up for 04/14/17 I: Input from patient/family R: Met with: patient, talked with son Bharat via telephone, Venessa Carroll PATTERNMAKER WOOD Discussed rehab plan, patient progress, discharge plan and estimated length of stay of d/c planned soon. Patient/Family Preference: Patient is in agreement with this. Anticipated discharge disposition: Plan home with support of family and/or friends. Education completed: Education was completed with patient regarding length of stay, progress in therapy and d/c plan. Expressed to patient that we would like someone to stay with him. Assessment/Recommendation: Team recommends d/c to home with 24 hour supervision. P: Case Coordination: Working with patient and family to see if 24 hour supervision is attainable. Patient has been living alone. Will continue to work on d/c plan.
--- NOTE | 2017-04-20 17:30 | NUR ---
Significant Event: Patient alert. Aphasic. Left sided weakness. Potassium was 3.3 today. dose of 60meq today and then will start 20meq daily tomorrow. Psych consult and patient denies any sucidial thoughts or ideations to MD. Showered this afternoon. Follow up:
--- NOTE | 2017-04-21 03:33 | NUR ---
Significant Event:Withdrawn but cooperative. Answers only yes/no questions. Left hand no grasp, can lift arm off bed with great concentration. Transfers well SBA, not using cane at this time. Does not like to wear sling to left arm when up in room. Denies pain. Meds whole with water. Potassium low yesterday starting 20mEq of Potassium orally daily today. Call light in reach. Patient turns off bed alarm. Follow up:
--- NOTE | 2017-04-21 14:50 | NUR ---
D: TR progress note for 04/21/17. I: Pt seen for 2 units at 1404 for community integration skills building, functional transfers, and social communication. R: Pt seen for functional skills building working on mobility, transfers and functional communication skills to build independence in community skills in anticipation for discharge back into community. Pt transferred supine > sit mod I, sit > stand from EOB mod I and ambulated to with SPC SBA. Session completed outdoors for training, safety and community education. Pt ambulated to/from low park bench 6 feet SBA, transferred on/off low bench mod I and transferred back into mod I with good safety awareness. Pt initiated comments throughout session demonstrating good eye contact with bland >< bright affect. Discussed concerns and continued upset with loss of I-phone but easily redirected, cooperative and pleasant. P: Will continue to see to address goals and plan of care.
--- NOTE | 2017-04-21 20:01 | NUR ---
Significant Event: Pt up in room and carter with SBA, steady, tracey. well. Pt appears depressed and withdrawn. Little interaction with staff. Pt was cooperative with assessment, vs, meds. Pt did refuse am PT session. Pt spontaneous with movements, alarms in use. Left arm remains flaccid. Follow up: activity, safety
--- NOTE | 2017-04-22 04:02 | NUR ---
A/O. SPEAKS LITTLE CAMBODIAN. FLAT AFFECT. L) HAND WEAKNESS. DENIES PAIN. SBA UP TO BATHROOM. VOIDS WELL. NO BM. ALARMS AT ALL TIMES.
[2017-04-22 05:44] LABS: ALBUMIN 3.1 gm/dL (3.5-5.0); ALK PHOS 152 IU/L (33-138); ALT 70 IU/L (12-78); ANION GAP 9.7 (10.0-19.0); AST 32 IU/L (10-40); BLOOD UREA NITROGEN 16 mg/dL (6-24); CALCIUM 8.9 mg/dL (8.5-10.5); CHLORIDE 107 mMol/L (96-110); CO2 28 mMol/L (22-32); CREATININE 0.8 mg/dL (0.6-1.3); POTASSIUM 3.7 mMol/L (3.7-5.1); SODIUM 141 mMol/L (135-145); TOTAL PROTEIN 7.8 g/dL (6.0-8.4)
[2017-04-22 05:46] LABS: TOTAL BILIRUBIN 0.4 mg/dL (0.0-1.5)
[2017-04-22 12:20] LABS: ALBUMIN 3.4 gm/dL (3.5-5.0); ANION GAP 9.9 (10.0-19.0); CALCIUM 9.2 mg/dL (8.5-10.5); CREATININE 0.9 mg/dL (0.6-1.3); POTASSIUM 3.9 mMol/L (3.7-5.1); TOTAL PROTEIN 8.3 g/dL (6.0-8.4)
[2017-04-22 12:23] LABS: TOTAL BILIRUBIN 0.5 mg/dL (0.0-1.5)
--- NOTE | 2017-04-22 16:18 | NUR ---
Significant Event:PATIENT ALERT AND ORIENTED THIS SHIFT. VSS. TRANSFERS WITH SBA. STEADY ON HIS FEET. COMPLAINTS OF PAIN JUST ABOVE HIS EYES TODAY AND OF DOUBLE VISION. REPORTED TO CT DONE AND VS MONITORED. NO ABNORMALITIES NOTED. GIVEN TYLENOL X 2 THIS SHIFT. LAST DOSE GIVEN AT 1516 THIS AFTERNOON. RESTS IN BED. HAS A DEPRESSED AFFECT. CONTINUED TO COMPLAIN OF DOUBLE VISION THIS AFTERNOON. NO OTHER COMPLAINTS. Follow up:
--- NOTE | 2017-04-23 04:49 | NUR ---
Significant Event:Vital signs q 6 hrs, last done at 0300. 144/80 and 144/68 with heart rate of 63 and 51. C/o headache to bilat outer eyebrow areas, some dizziness at times, with blurry/double vision--given tylenol at 2156 which brought pain from a 6 to a 4. Has slept, bed exit alarm on with side rails x 2 but pt does shut bed alarm off. Has had more eye contact and answers questions with a few more words than what he had this past wkend but still seems depressed and withdrawn. No family/friends visited. Follow up:Continue vital signs q 6 hrs, monitor safety when up. Encourage po intake of food/fluids. Monitor headache/vision changes.
--- NOTE | 2017-04-23 13:11 | NUR ---
Significant Event: Alert and oriented. Transfers with SBA. Pain to left shoulder. Denies need for PRN pain meds. Blurry vision worse to the left eye. Dizziness at times. Depressed and withdrawn. Patient gets up and shuts off his bed alarms on his own. Refused lovenox this morning. Cooperative with cares this shift. Follow up:
--- NOTE | 2017-04-24 04:17 | NUR ---
Significant Event: A&Ox3, VSS on room air. States blurry vision is "better" Left shoulder pain but refused tylenol. Patient shuts off bed alarm and gets up on his own. Encouraged to call for help. Patient appears steady in gait. Caught patient walking to dining room by himself without assistive devices. Denies needs. Poor eye contact at times and rushes me through assessments. Rested well. Follow up:
--- NOTE | 2017-04-24 12:12 | NUR ---
Significant Event:Alert and orientated, with, expresses needs even though main language [place] Islander. REports left shoulder pain, tolerable, refuses pain meds. Continues to complain of blurry vision, left eye more effected. REfuses Lovenox this am, even though explained needed for blood thinning. Reviewed with therapy/staff, pt may be up and about in room without alarms on, encourage pt to call for assist as needed, and prefer staff attendance when in hallway. Pt has hx of non compliant up in room without assist, and has been steady with own transfers. Upsets pt when alarms would go off. Will monitor. Pt has been cooperative with plan of care. Pt continues to have poor eye contact, and will juares me through assessment also. Follow up:Monitor activity.
--- NOTE | 2017-04-24 14:27 | NUR ---
PT MOVED TO NO RISK. NO NEW WT. INTAKE BITES TO 100%. PT REFUSES ALL SUPPLEMENTS EXCEPT MAGIC CUP QD. EN SUGGESTED MULTIPLE TIMES; PLEASE CONSULT IF EN DESIRED IN THE FUTURE. WILL F/U IN 7 DAYS.
--- NOTE | 2017-04-24 15:33 | NUR ---
D: Gang Investigator Team Conference Follow up for 04/21/17 I: Input from patient/family R: Met with: patient, Dr. Mckeon, Venessa Grey STAND UP FORKLIFT OPERATOR Discussed rehab plan, patient progress, discharge plan and estimated length of stay of d/c planned soon. Patient/Family Preference: Patient is in agreeement. Concerned about where he is is going to go. Anticipated discharge disposition: unknown. Education completed: Educuation was completed with patient regarding d/c plan ideas. Assessment/Recommendation: team recommends d/c. P: Case Coordination: Roshan is a 66 year old man from [place], [place] admitted after a stroke. Working on d/c plan. Found out that patient has been living with his ex-. Ex- and son came up last Thursday and said that they could not take patient home.
--- NOTE | 2017-04-24 16:14 | NUR ---
While in another pts rm across from this pt, saw pt walk out of his room go south, and shortly come back with a towel to his room, pt did not turn his light on. Reinforced to pt to call for assist, especially if leaving , remains uncooperative with plan of care.
--- NOTE | 2017-04-25 03:10 | NUR ---
Significant Event: Patient is alert and oriented. VSS. Denies pain or discomfort. Has been cleared to be up ad kate in his room only. Gets upset when alarm on bed is on shuts it off if it is on. Has been withdrawn and answers question with a yes or no. Was asked to take a shower last night tells nursing he showered at 5 oclock yesterday. Not sure if he really did. Follow up:
--- NOTE | 2017-04-25 15:19 | NUR ---
Significant Event:PATIENT ALERT AND ORIENTED THIS SHIFT. VSS. TRANSFERS WITH SBA. GENERALLY SHUTS OFF OWN ALARMS AND GETS AROUND ROOM ON HIS OWN. IS STEADY ON HIS FEET. COMPLAINED OF A HEADACHE THIS AM AND WAS GIVEN TYLENOL AT 1051. HAS CONTINUED DOUBLE VISION IN HIS LEFT EYE BUT REPORTS THE RIGHT EYE IS BETTER BUT STILL HAPPENS AT TIMES. WORKED WITH THERAPIES TODAY AND TOLERATED WELL. NO OTHER COMPLAINTS. Follow up:
--- NOTE | 2017-04-26 02:38 | NUR ---
Significant Event: Patient is alert and oriented. Was hyertensive last evening. Up Ad Rosmery in his room but will get up in carter with his family. Gait is steady. C/O yesterday of MARSHALL, no c/o t/o the night. Daughter here last night, patient was asking if he could go out to shop for a new phone. Is reminded he needed a pass from the Dr to go out. Still seems withdrawn kind of does his own thing, does not call with needs. Bed was alarmed last night patient turned it off. Follow up:
--- NOTE | 2017-04-26 15:47 | NUR ---
Significant Event:PATIENT ALERT AND ORIENTED THIS SHIFT. VSS. TRANSFERS WITH 1 SBA. GETS UP BY SELF THOUGH AND SHUTS OFF ALARMS. GETS UPSET WHEN THEY ARE ON. HAS RESTED IN BED MOST OF THE DAY. HAS DENIED PAIN TODAY. DID HAVE SOME VISITORS THIS AFTERNOON. LEFT ARM STILL HAS LITTLE MOVEMENT. HE USES RIGHT ARM TO MANIPULATE IT. HAS A VERY STEADY GAIT WHEN UP. NO OTHER COMPLAINTS. Follow up:
--- NOTE | 2017-04-27 03:05 | NUR ---
Significant Event: Patient is alert and oriented. VSS. Up Mod I in his room, gait is steady. Does his own cares and does not ask for assist. Keeps to himself and at times is noncompliant. Turns off alarm when nursing turns it off. Rests in bed most of the time. Denies pain or discomfort. Follow up:
[2017-04-27 06:12] LABS: ALBUMIN 3.3 gm/dL (3.5-5.0); ANION GAP 8.9 (10.0-19.0); CALCIUM 8.9 mg/dL (8.5-10.5); CREATININE 0.9 mg/dL (0.6-1.3); POTASSIUM 3.9 mMol/L (3.7-5.1); TOTAL PROTEIN 7.7 g/dL (6.0-8.4)
[2017-04-27 06:15] LABS: TOTAL BILIRUBIN 0.3 mg/dL (0.0-1.5)
--- NOTE | 2017-04-27 19:32 | NUR ---
Significant Event: UP IN ROOM, WATCHES TV. WILL GO OUT IN [place]LMSTE[place] TO KITCHEN , STEADY ON FEET.... REFUSED POTASSIUM AND LOVENOX... Follow up:
--- NOTE | 2017-04-28 04:09 | NUR ---
Significant Event: Alert/oriented x3. Hypertensive - SBP 150. Up Mod 1 in his room. Steady gait. Does own cares, does not call for help. Turns off bed alarm. In bed most of shift. No complaint of pain. Does not speak much German. Weaker on left side. Follow up:
--- NOTE | 2017-04-28 12:29 | NUR ---
D: TR progress note for 04/28/17. I: Pt seen for 1 unit at 902 for community integration skills building, functional communication and endurance building. R: Pt seen for functional skills building working on coping, endurance, and functional social communication skills to build independence in community skills in anticipation for discharge back into community. Pt seen at bedside, refused community skills building at [facility] to simulated community setting. Discussed desire to complete community outing with family and discussed recent purchases with noted flat affect but fair eye contact. P: Will continue to see to address goals and plan of care.
--- NOTE | 2017-04-28 16:59 | NUR ---
Significant Event:PT AD BRANDIN IN ROOM. DENIES PAIN. VERY QUIET. STATES HAD BM TODAY. EATING W/O DIFFICULTY. COMPLIANT WITH THERAPY, DENIES SUICIDE IDEATIONS. LEFT SIDED WEAKNESS IN UPPER EXTREMITY. Follow up:
--- NOTE | 2017-04-29 03:52 | NUR ---
Significant Event: A/O x3. up ad kate in room. steady on feet. turns bed alarm off. denies suicidal thoughts. left sided weakness in LUE. no difficulty swallowing. talkative when spoken to, toehrwise quiet. Follow up:
--- NOTE | 2017-04-29 09:29 | NUR ---
Pt refused Lovenox, and po potassium. Sherri RUBALCAVA here and updated on pt's refusing above meds.
--- NOTE | 2017-04-29 11:24 | NUR ---
Significant Event:Pt ad kate in room, to walk with staff in hallway, but pt continues to be non compliant and will be in hallway @ times by self. Pt refuses Lovenox, and K-tabs, updated Sherri RUBALCAVA this am. Denies suicide ideations. Left side weakness, in upper extremity, no change in assessment. Follow up:pain control, monitor when in hallway, and check room for safety.
--- NOTE | 2017-04-29 12:18 | NUR ---
D: TR progress note for 04/29/17. I: Pt was seen for 2 units at 1100 in group session. R: Pt not seen due to refusal. P: Will continue to see to address goals and plan of care.
--- NOTE | 2017-04-29 18:25 | NUR ---
Pt was going through his clothes this afternoon, reported he was missing a nice blue T shirt style with short sleeves. Did not find in his room @ that time. Called laundry to see if was in lost and found, notified phlebotomy supervisor. Have not found item as of this time.
--- NOTE | 2017-04-30 04:43 | NUR ---
Significant Event: Denied pain. Up ad kate. Patient states can not move L) arm or hand. All other CSM WNL. Denies suicide or harming self. Refused Colace. Cooperative, but would not answer all questions when asked. Follow up:
--- NOTE | 2017-04-30 12:17 | NUR ---
D: TR progress note for 04/30/17. I: Pt seen for 4 units at 1105 for community integration skills building, functional transfers, and functional social communication. R: Pt seen for functional skills building working on safety, mobility and functional communication skills to build independence in community setting in anticipation for discharge back into community. Pt taken to [facility] by Therapies ( OT/TR) for training, safety and community education. Pt ambulated community distances 1000+ feet through multiple thresholds, handicapped accessible doors x2, elevators, multiple surfaces and busy community environment all mod I with no LOB. Pt completed vehicle transfers in/out x2 mod I and independent for managing BLE plus seat belt. Pt at establishment able to navigation confining spaces independent, retrieve multiple items from refrigerator and interacted well with peers/staff throughout session. P: Will continue to see to address goals and plan of care.
--- NOTE | 2017-04-30 14:29 | NUR ---
Significant Event:PATIENT ALERT AND ORIENTED THIS SHIFT. VSS. TRANSFERS INDEPENDANTLY. DENIES PAIN THIS SHIFT. LEFT ARM FLACCID. HAS EATEN WELL THIS SHIFT. RESTS IN BED WHEN NOT IN THERAPY. WON'T KEEP ALARMS ON AND SHUTS THEM OFF IF THEY ARE ON HIS BED. IS VERY STEADY ON HIS FEET. NO OTHER COMPLAINTS. Follow up:
--- NOTE | 2017-05-01 04:03 | NUR ---
Significant Event: PATIENT IS ALERT AND ORIENTATED. TRANSFERS INDEPENDENTLY. VSS WNL ON RA. NO COMPLAINTS OF PAIN OR DISCOMFORT THIS SHIFT. LEFT ARM FLACCID. REFUSES TO KEEP ALARMS ON SHUTS THEM OFF. PLAN IS TO TRANSFER TO [facility] IN AM Follow up:
--- NOTE | 2017-05-01 11:03 | NUR ---
PT REMAINS NOT AT RISK. INTAKE IMPROVED, TYPICALLY 50-100% W/ OCC. BITES TO 25%. PT REFUSES ALL SUPPLEMENTS EXCEPT FOR MAGIC CUP QD. WT IS DOWN 2# X 1 WEEK, WT SHOULD TREND UPWARD W/ IMPROVED ORAL INTAKE. WILL F/U IN 7 DAYS.
[2017-05-01] MEDS ORDERED: ASPIRIN (CHILDR81 MG PO (12:46)
--- NOTE | 2017-05-01 16:13 | NUR ---
Pt's viatl signs stable. Pt denies pain. Reviewed discharge instructions with pt, gave verbal and written instructions. Pt voiced understanding. Pt sent with personal belongings.
--- NOTE | 2017-05-01 18:18 | NUR ---
D: Ict Programmer Team Conference Follow up for 04/28/17 and 05/01/17 I: Input from patient/family R: Met with: patient, son Bharat, Dr. Mckeon, Venessa Grey AOC DIRECTOR INTELLIGENCE OFFICER Discussed rehab plan, patient progress, discharge plan and estimated length of stay of d/c planned for 05/01/17 Patient/Family Preference: patient is in agreement. Anticipated discharge disposition: [facility] Education completed: Education was completed with patient regarding d/c plan. Assessment/Recommendation: Team recommends d/c. P: Case Coordination: Worked on d/c to [facility] in [place]. They have an opening. Patient in agreement to go although he voices that he feels betrayed by family. Filled 30 day supply of meds for patient through our pharmacy and got them approved to be paid through [employer]. Took patient to [place] where he signed all necessary paperwork. Patient then found out that he would have a roommate and then refused to stay. Tried to call patient's son Bharat and his ex- Dianne. Patient would not budge. Asked me to take him to his car. I expressed to him that he was NOT to drive per Dr. cherry. I expressed that I would be making proper reports to APS regarding concerns for safety. Dropped patient at car at [address] He got out with stuff and proceeded to put stuff in car. Report made to Sarita at Abuse and Neglect Hotline. Report was not accepted as he does not fit the description of vulnerable adult at this time. Will update Bharat, patient's son as well.
== END 2017-05-01 15:24 | disposition home health service (06) | DRG 57 ==
LOC: GIRP 11:02
PROVIDERS: Internal Medicine; Nurse Practitioner Family; ADMIT Physical Medicine & Rehabilitation
DX: I69.354 Hemiplegia and hemiparesis following cerebral infarction affecting left non-dominant side (principal); I69.390 Apraxia following cerebral infarction; I10 Essential (primary) hypertension; E78.5 Hyperlipidemia, unspecified; K21.9 Gastro-esophageal reflux disease without esophagitis; R26.81 Unsteadiness on feet; Z74.1 Need for assistance with personal care; F17.200 Nicotine dependence, unspecified, uncomplicated; F43.21 Adjustment disorder with depressed mood; R07.9 Chest pain, unspecified
CPT/HCPCS: A9500; J1650; J2405; J2785; J7120